=== PATIENT | male | born 1975 | race Caucasian/White ===

== ENCOUNTER 2017-04-25 09:21 | Emergency (ER) | payer BC ==
[~2017-04-25] VITALS: Ht 180.3 cm; Wt 84.6 kg
[~2017-04-25 09:21] MED LIST: AMLO-110 PO; CIPR-255 PO; LISI20TA3 PO; ONDA4TAB7 SL
[2017-04-25 09:26] VITALS: Ht 180.3 cm; Wt 84.6 kg
[2017-04-25] MEDS ORDERED: MoRPHine SULFATE 10 MG/ML CARP/VIAL IV STA ×2 (09:42→10:59)
[2017-04-25] MEDS ORDERED: SODIUM CHLORIDE 0.9% 1000ML 1,000 ML IV STA ×2 (09:42)
[2017-04-25] MEDS ORDERED: ONDANSETRON INJ 2 MG/ML 2 ML VIAL IV STA ×2 (09:42→10:59)
[2017-04-25 09:56] LABS: BASO % 0.9 %; BASO ABS # 0.07 K/uL (0-0.2); COMPLETE YES; EOS % 14.4 %; HEMATOCRIT 47.1 % (42-52); IG% 0.1 %; LYMPH % 28.7 %; LYMPH ABS # 2.23 K/uL (1.2-3.4); MEAN CELL VOLUME 90.6 fL (80-100); MEAN CORPUSCULAR HEMOGLOBIN 30.4 pg (25-34); MEAN CORPUSCULAR HGB CONC 33.5 g/dl (32-36); MEAN PLATELET VOLUME 9.7 fL (7.4-10.4); MONO % 7.5 %; NEUT % 48.4 %; PLATELET COUNT 289 K/uL (130-400); WHITE BLOOD COUNT 7.76 K/uL (4.8-10.8)
[2017-04-25 10:00] VITALS: TEMP 36.6
[2017-04-25 10:06] LABS: CALCIUM 9.4 mg/dl (8.5-10.1)
[2017-04-25 10:07] LABS: BUN/CREATININE RATIO 9.3 (10-20); POTASSIUM 4.1 mmol/L (3.5-5.1)
--- NOTE | 2017-04-25 10:39 | DIAGNOSTIC IMAGING REPORT ---
ABDOMEN 2VIEW W/PA CHEST RTN CLINICAL HISTORY: ABD PAIN X 5 DAYS COMPARISON STUDY: No previous studies for comparison. FINDINGS: The soft tissues, psoas shadows, renal outlines and intestinal gas pattern appear normal. There is no evidence for bowel obstruction. There is no evidence for free intraperitoneal air. No abnormal abdominal calcifications are seen. A frontal view of the chest was performed and is unremarkable. IMPRESSION: Normal study. Electronically signed by: Alfredito Pimentel M.D. 04/25/2017 10:37 AM Dictated Date/Time: 04/25/2017 10:34 AM
[2017-04-25] MEDS ORDERED: OPTIRAY 320 IV PRN (11:15)
--- NOTE | 2017-04-25 11:42 | DIAGNOSTIC IMAGING REPORT ---
CT OF THE ABDOMEN AND PELVIS WITH CONTRAST CLINICAL HISTORY: Severe abdominal pain. COMPARISON STUDY: CT of the abdomen and pelvis December 22, 2014 and abdominal series performed earlier today. TECHNIQUE: Following IV administration of 94 mL of Optiray-320, axial images of the abdomen and pelvis were obtained from the lung bases to the proximal femurs. Images were reviewed in the axial, sagittal, and coronal planes. IV contrast was administered without complication. CT DOSE: 410.32 mGy.cm FINDINGS: Visualized portions of the lower chest demonstrate mild right lower lung opacity which favors atelectasis. No pneumatosis, free air or portal venous gas is present. The liver, spleen, adrenal glands, kidneys and pancreas are normal. There is no hydronephrosis. There is no biliary or pancreatic ductal dilatation. Major vasculature of the abdomen and pelvis is patent. There is no convincing evidence for a bowel obstruction. There are few prominent fluid-filled ileal loops within the right abdomen without transition point. The appendix is normal. No ascites is present. There is no lymphadenopathy. Skeletal structures are unremarkable. IMPRESSION: 1. Normal appendix. 2. Prominent fluid-filled small bowel loops within the right abdomen which are likely within normal limits. No transition point to suggest a bowel obstruction. Electronically signed by: Anmol Hernandez M.D. 04/25/2017 11:41 AM Dictated Date/Time: 04/25/2017 11:30 AM
[2017-04-25] MEDS ORDERED: HYDROmorphone INJ 1 MG/ML SYR IV STA (11:58)
[2017-04-25] MEDS ORDERED: HYDR-5688 PO (12:52)
[2017-04-25] MEDS ORDERED: ONDA4TAB10 SL (12:52)
--- NOTE | 2017-04-25 12:53 | EMERGENCY ROOM VISIT NOTE ---
History First contact with patient: 09:32 Chief Complaint: ABDOMINAL PAIN Stated Complaint: SEVERE ABDOMINAL PAIN Nursing Triage Summary: Pt. reports abdominal pain that started on friday and has gotten progressively worse over the course of the week. States he vomited on friday from the pain, but has not vomited since. History of Present Illness Patient is a 42-year-old white male with past medical history significant for hypertension, diverticulosis, history of diverticulitis and remote history of a kidney stone who presents to emergency department for evaluation of abdominal pain. He notes generalized abdominal pain that started about 4-5 days ago. Initially the pain was tolerable, and would come and go, today the pain has become more constant and is now unbearable. He presently rates his pain an 8/ 10. He has been nauseous, he attributes this to the pain. He vomited once on Friday at the onset of the pain, 4 days ago, but none since. He denies any dysuria, frequency or urgency. Bowel movements have been normal. Last bowel movement was this morning. He denies melena, hematochezia, hematemesis, constipation or diarrhea. No fever. He has a history of diverticulitis which was treated as an outpatient with oral antibiotics. He has a remote history of a kidney stone. He has never had a colonoscopy. He denies pain similar to this previously. No history of abdominal surgeries. He denies any chest pain, palpitations or shortness of breath. No back or flank pain. Review of Systems Review of systems as per HPI. All other systems reviewed were negative. 10 systems reviewed. Past Medical/Surgical History Medical Problems: (1) Diverticulitis (2) Diverticulosis (3) Hypertension Nos (4) Personal History Of Urinary Calculi Surgical Problems: (1) History of shoulder surgery (2) History of vasectomy Electronic medical records are reviewed and summarized as above/below. See Problem List. Social History Smoking Status: Former Smoker Alcohol Use: occasionally Drug Use: none Marital Status: Housing Status: lives with family Occupation Status: employed Current/Historical Medications Scheduled Amlodipine (Norvasc), 5 MG PO DAILY Lisinopril (Prinivil), 20 MG PO DAILY Scheduled PRN Hydrocodone/Acetaminophen 5MG/325MG ([place] 5MG/325MG), 1-2 TABLETS PO Q4H PRN for Pain Ondasetron Odt (Zofran Odt), 4 MG SL Q4 PRN for Nausea or Vomiting Allergies Coded Allergies: No Known Allergies (Unverified , 04/14/14) Physical Exam Vital Signs Date Time Temp Pulse Resp B/P (MAP) Pulse Ox O2 Delivery O2 Flow Rate FiO2 04/25/17 13:41 89 16 123/65 96 04/25/17 12:09 04/25/17 11:46 87 18 121/78 98 Room Air 04/25/17 10:39 74 20 131/60 98 Room Air 04/25/17 10:00 36.6 77 16 120/69 98 Room Air 04/25/17 09:26 36.3 72 20 116/67 98 Room Air Physical Exam CONSTITUTIONAL: Patient is an uncomfortable-appearing 42-year-old white male who is awake and alert and in mild distress due to his abdominal pain. EYES: Pupils equal, round, reactive to light and accommodation. EOMs intact without nystagmus. Sclera are anicteric. ENT: Tympanic membranes intact, with normal landmarks. External canals are clear. Oral and nasopharynx are clear. Mucous membranes are moist, no lesions , tongue and gums appear normal. CARDIOVASCULAR: Regular rate and rhythm, with normal S1 and S2, no murmur or gallop or rub is heard. No carotid bruits auscultated. No JVD. Peripheral pulses easy to palpable. RESPIRATORY: Breath sounds equal and clear to auscultation without wheezes, rales, or rhonchi heard. Full and equal chest expansion without accessory muscle use or retractions. GI: Bowel sounds are present. Abdomen is soft, slightly distended, diffusely tender throughout. There is no localized pain to palpation. No organomegaly. No pulsatile masses. No guarding or rebound. MUSCULOSKELETAL: Full range of motion of extremities x 4 with good strength. No cyanosis, edema, joint tenderness or swelling. No deformity. INTEGUMENTARY: No lesions or rash, normal skin turgor. NEUROLOGICAL: Alert, oriented, and cooperative. Cranial nerves, sensation and strength grossly intact. Pupils round, equal, and react to light, EOMs are full. LYMPH: No lymphadenopathy. Medical Decision & Procedures ER Provider Diagnostic Interpretation: ABDOMEN 2VIEW W/PA CHEST RTN CLINICAL HISTORY: ABD PAIN X 5 DAYS COMPARISON STUDY: No previous studies for comparison. FINDINGS: The soft tissues, psoas shadows, renal outlines and intestinal gas pattern appear normal. There is no evidence for bowel obstruction. There is no evidence for free intraperitoneal air. No abnormal abdominal calcifications are seen. A frontal view of the chest was performed and is unremarkable. IMPRESSION: Normal study. CT OF THE ABDOMEN AND PELVIS WITH CONTRAST CLINICAL HISTORY: Severe abdominal pain. COMPARISON STUDY: CT of the abdomen and pelvis December 22, 2014 and abdominal series performed earlier today. TECHNIQUE: Following IV administration of 94 mL of Optiray-320, axial images of the abdomen and pelvis were obtained from the lung bases to the proximal femurs. Images were reviewed in the axial, sagittal, and coronal planes. IV contrast was administered without complication. CT DOSE: 410.32 mGy.cm FINDINGS: Visualized portions of the lower chest demonstrate mild right lower lung opacity which favors atelectasis. No pneumatosis, free air or portal venous gas is present. The liver, spleen, adrenal glands, kidneys and pancreas are normal. There is no hydronephrosis. There is no biliary or pancreatic ductal dilatation. Major vasculature of the abdomen and pelvis is patent. There is no convincing evidence for a bowel obstruction. There are few prominent fluid-filled ileal loops within the right abdomen without transition point. The appendix is normal. No ascites is present. There is no lymphadenopathy. Skeletal structures are unremarkable. IMPRESSION: 1. Normal appendix. 2. Prominent fluid-filled small bowel loops within the right abdomen which are likely within normal limits. No transition point to suggest a bowel obstruction. Laboratory Results 04/25/17 09:30 Red Blood Count 5.20, Mean Corpuscular Volume 90.6, Mean Corpuscular Hemoglobin 30.4, Mean Corpuscular Hemoglobin Concent 33.5, Mean Platelet Volume 9.7, Neutrophils (%) (Auto) 48.4, Lymphocytes (%) (Auto) 28.7, Monocytes (%) (Auto) 7.5, Eosinophils (%) (Auto) 14.4, Basophils (%) (Auto) 0.9, Neutrophils # (Auto ) 3.75, Lymphocytes # (Auto) 2.23, Monocytes # (Auto) 0.58, Eosinophils # (Auto ) 1.12, Basophils # (Auto) 0.07 04/25/17 09:30 Test 04/25/17 09:30 White Blood Count 7.76 K/uL (4.8-10.8) Red Blood Count 5.20 M/uL (4.7-6.1) Hemoglobin 15.8 g/dL (14.0-18.0) Hematocrit 47.1 % (42-52) Mean Corpuscular Volume 90.6 fL (80-100) Mean Corpuscular Hemoglobin 30.4 pg (25-34) Mean Corpuscular Hemoglobin Concent 33.5 g/dl (32-36) Platelet Count 289 K/uL (130-400) Mean Platelet Volume 9.7 fL (7.4-10.4) Neutrophils (%) (Auto) 48.4 % Lymphocytes (%) (Auto) 28.7 % Monocytes (%) (Auto) 7.5 % Eosinophils (%) (Auto) 14.4 % Basophils (%) (Auto) 0.9 % Neutrophils # (Auto) 3.75 K/uL (1.4-6.5) Lymphocytes # (Auto) 2.23 K/uL (1.2-3.4) Monocytes # (Auto) 0.58 K/uL (0.11-0.59) Eosinophils # (Auto) 1.12 K/uL (0-0.5) Basophils # (Auto) 0.07 K/uL (0-0.2) RDW Standard Deviation 39.0 fL (36.4-46.3) RDW Coefficient of Variation 11.7 % (11.5-14.5) Immature Granulocyte % (Auto) 0.1 % Immature Granulocyte # (Auto) 0.01 K/uL (0.00-0.02) Anion Gap 9.0 mmol/L (3-11) Est Creatinine Clear Calc Drug Dose 101.4 ml/min Estimated GFR () 106.4 Estimated GFR (Non- 91.8 BUN/Creatinine Ratio 9.3 (10-20) Calcium Level 9.4 mg/dl (8.5-10.1) Total Bilirubin 0.5 mg/dl (0.2-1) Aspartate Amino Transf (AST/SGOT) 60 U/L (15-37) Alanine Aminotransferase (ALT/SGPT) 47 U/L (12-78) Alkaline Phosphatase 71 U/L (45-117) Total Protein 7.8 gm/dl (6.4-8.2) Albumin 3.9 gm/dl (3.4-5.0) Globulin 3.9 gm/dl (2.5-4.0) Albumin/Globulin Ratio 1.0 (0.9-2) Lipase 128 U/L (73-393) Medications Administered Medications (Trade) Dose Ordered Sig/Clover Route Start Time Stop Time Status Last Admin Dose Admin Sodium Chloride 1,000 ml @ 999 mls/hr Q1H1M STAT IV 04/25/17 09:42 04/25/17 10:42 DC 04/25/17 09:53 999 MLS/HR Sodium Chloride 1,000 ml @ 250 mls/hr Q4H STAT IV 04/25/17 09:42 04/25/17 13:41 DC 04/25/17 10:56 250 MLS/HR Ondansetron HCl (Zofran Inj) 4 mg NOW STAT IV 04/25/17 09:42 04/25/17 09:44 DC 04/25/17 09:52 4 MG Morphine Sulfate (MoRPHine SULFATE INJ) 6 mg NOW STAT IV 04/25/17 09:42 04/25/17 09:44 DC 04/25/17 09:52 6 MG Morphine Sulfate (MoRPHine SULFATE INJ) 8 mg NOW STAT IV 04/25/17 10:59 04/25/17 11:00 DC 04/25/17 11:40 8 MG Ondansetron HCl (Zofran Inj) 4 mg NOW STAT IV 04/25/17 10:59 04/25/17 11:00 DC 04/25/17 11:39 4 MG ED Course The patient was seen and evaluated as above. Old records are reviewed. IV lock was initiated. Laboratory studies were collected patient was hydrated with normal saline solution. He was initially medicated with morphine 6 mg and Zofran 4 mg IV. CBC with differential, CMP, lipase, urine dip were performed. Acute abdominal series was obtained. Laboratory studies noted a normal white count and H&H. No left shift or bandemia. Electrolytes, renal function and liver functions and lipase are within normal limits. Urine dip was cleaned. Acute abdominal series was unremarkable, no evidence for bowel obstruction, or free air. Patient continued to complain of pain after he returned from x-ray and was given additional morphine 8 mg and Zofran 4 mg IV. Given the persistent pain and his history of diverticulitis, CT scan of the abdomen and pelvis with IV contrast was ordered. Findings are as noted above. There were some dilated loops of small bowel in the right abdomen, no evidence for obstruction. The patient was reassessed and had rated his pain a 2/10, but reported that after he got up to the bathroom, the pain was beginning to return. He had been ordered Dilaudid IV, but this was not administered. All laboratory and diagnostic imaging studies were reviewed with the patient and his significant other. Differential diagnoses entertained included GERD, gastritis, esophagitis , peptic ulcer disease, pancreatitis, acute cholecystitis, biliary colic, bowel obstruction, perforation, diverticulitis, abscess, renal colic, among others. Patient is encouraged to follow a clear liquid diet. He was advised to follow- up closely with his primary care provider next week for further care and evaluation, and to return to the emergency department for worsening symptoms. The patient rated his pain a 0/10 at discharge. Medical Decision See ED course. Impression Primary Impression: Abdominal pain Departure Information Prescriptions Hydrocodone/Acetaminophen 5MG/325MG ([place] 5MG/325MG) Tab 1-2 TABLETS PO Q4H Y for Pain, #15 TAB For Initial Treatment Prov: Leslee Estrada PA 04/25/17 Ondasetron Odt (ZOFRAN ODT) 4 Mg Tab 4 MG SL Q4 Y for Nausea or Vomiting, #20 TAB Prov: Leslee Estrada PA 04/25/17 Referrals Adryan Martinez DO (PCP) Patient Instructions [facility] Additional Instructions DO NOT drive, drink alcohol, operate machinery, or perform dangerous activities today. You were given medications in the ER that can affect your ability to safely function or operate a vehicle. Hydrocodone/Acetaminophen ([place]) 5/325 mg: Take 1-2 pills every four hours for breakthrough pain. Avoid alcohol, operating machinery or dangerous equipment, working on ladders or roofs, DRIVING, or situations where being under the influence may be dangerous. It is recommended to use an [id number] stool softener such as Colace, 100mg twice daily while taking this medication to avoid constipation. Ibuprofen(Motrin, Advil) may be used for fever or pain. Use 600mg every six hours as needed. Take with food. Avoid using more than 2400mg in a 24 hour period. Do not use 2400mg per day for more than three consecutive days without physician direction. Prolonged inappropriate use can lead to stomach upset or ulcers. This is available over the counter and typically comes in 200mg tablets. (AND/OR) Acetaminophen(Tylenol) may be used for fever or pain. Use 1000mg every eight hours as needed. Avoid using more than 3000mg in a 24 hour period. This is available over the counter. Zofran(odansetron) tablets 4mg: Take one and allow it to dissolve in your mouth every four hours as needed for nausea or vomiting. May try Prilosec 20 mg daily. Read all the package inserts or medication information paperwork provided. If you have any questions or concerns call your primary provider, pharmacist or the ER for assistance. Rest and drink plenty of fluids as tolerated. Slow sips of water or sports drinks are recommended instead of large amounts all at once. Continue current medications. Clear liquid diet (jello, soup broth, etc.) for 1-2 days, and then advance as tolerated. You should avoid full, heavy meals for about 24 hrs from the time your symptoms resolved. Return to the ER immediately for worsening or persistent abdominal pain, vomiting, fevers, chest pains, difficulty breathing, black or bloody stools, worsening of your condition, or as needed. Follow up with your primary physician in 1-2 days for a recheck of your current condition. Problem Qualifiers Primary Impression: Abdominal pain Abdominal location: generalized Qualified Codes: R10.84 - Generalized abdominal pain
[2017-04-25 13:41] VITALS: BP 123/65; PULSE 89; O2SAT 96
[2017-05-03] MEDS ORDERED: PRED10TA PO (12:11)
== END 2017-04-25 13:42 | disposition home or self-care (01) ==
LOC: C.EDB 09:22
DX: R10.84 Generalized abdominal pain (principal); I10 Essential (primary) hypertension; K57.90 Diverticulosis of intestine, part unspecified, without perforation or abscess without bleeding; Z87.442 Personal history of urinary calculi; Z87.891 Personal history of nicotine dependence; Z98.52 Vasectomy status

== ENCOUNTER 2017-04-27 20:18 | Emergency (ER) | payer BC ==
[~2017-04-27] VITALS: Ht 180.3 cm; Wt 75.7 kg
[~2017-04-27 20:18] MED LIST changes: +HYDR-5688 PO; +ONDA4TAB10 SL
[2017-04-27 20:26] VITALS: TEMP 36.9; Ht 180.3 cm; Wt 75.7 kg
[2017-04-27] MEDS ORDERED: SODIUM CHLORIDE 0.9% 1000ML 1,000 ML IV STA ×2 (21:30)
[2017-04-27] MEDS ORDERED: DICYCLOMINE HCL 10 MG/ML 2 ML AMP IM ONE (21:30)
[2017-04-27] MEDS ORDERED: RANITIDINE HCL 50 MG/100 ML D5W IV STA (21:30)
[2017-04-27 21:52] LABS: BASO % 0.6 %; BASO ABS # 0.06 K/uL (0-0.2); COMPLETE YES; EOS % 14.7 %; HEMATOCRIT 41.4 % (42-52); IG% 0.2 %; LYMPH % 35.7 %; LYMPH ABS # 3.35 K/uL (1.2-3.4); MEAN CELL VOLUME 89.8 fL (80-100); MEAN CORPUSCULAR HEMOGLOBIN 31.5 pg (25-34); MEAN PLATELET VOLUME 9.4 fL (7.4-10.4); MONO % 5.5 %; NEUT % 43.3 %; PLATELET COUNT 259 K/uL (130-400); RED BLOOD COUNT 4.61 M/uL (4.7-6.1); WHITE BLOOD COUNT 9.39 K/uL (4.8-10.8)
--- NOTE | 2017-04-27 22:04 | DIAGNOSTIC IMAGING REPORT ---
CHEST ONE VIEW PORTABLE CLINICAL HISTORY: Atypical chest pain COMPARISON STUDY: 04/25/2017 FINDINGS: The cardiac and mediastinal contours are normal. There is no evidence of focal pulmonary consolidation. There is no evidence of failure. No pleural effusions are visualized.[ IMPRESSION: No active disease in the chest. Electronically signed by: Oswald Iqbal M.D. 04/27/2017 10:03 PM Dictated Date/Time: 04/27/2017 10:03 PM
[2017-04-27 22:08] LABS: ALT/SGPT 33 U/L (12-78); BLOOD UREA NITROGEN 8 mg/dl (7-18); BUN/CREATININE RATIO 8.1 (10-20); CARBON DIOXIDE 26 mmol/L (21-32); CHLORIDE 106 mmol/L (98-107); GLUCOSE 114 mg/dl (70-99); MAGNESIUM 2.1 mg/dl (1.8-2.4); POTASSIUM 3.6 mmol/L (3.5-5.1); SODIUM 142 mmol/L (136-145)
[2017-04-27 22:14] LABS: ALKALINE PHOSPHATASE 60 U/L (45-117); AST/SGOT 29 U/L (15-37); CKMB/CK RATIO 0.4 (0-3.0)
[2017-04-27 22:38] LABS: CALCIUM 8.5 mg/dl (8.5-10.1)
[2017-04-27] MEDS ORDERED: KETOROLAC TROMETHAMINE 30 MG/ML VIAL IV STA (23:45)
[2017-04-27] MEDS ORDERED: METOCLOPRAMIDE HCL INJ 5 MG/ML 2 ML VIAL IV STA (23:45)
[2017-04-27] MEDS ORDERED: DiphenhydrAMINE HCL 50 MG/ML VIAL IV STA (23:45)
[2017-04-28] MEDS ORDERED: OPTIRAY 320 IV PRN (00:15)
[2017-04-28] MEDS ORDERED: BENTYL HOME PACK 10 MG VIAL PO ONE (01:30)
[2017-04-28] MEDS ORDERED: ONDANSETRON HOME PACK 4MG OD TAB PO ONE (01:30)
[2017-04-28] MEDS ORDERED: ONDA4TAB46 PO (01:34)
[2017-04-28] MEDS ORDERED: DICY10CA55 PO (01:34)
[2017-04-28 01:47] VITALS: BP 102/62; PULSE 56; O2SAT 98
--- NOTE | 2017-04-28 03:39 | EMERGENCY ROOM VISIT NOTE ---
History First contact with patient: 21:23 Chief Complaint: ABDOMINAL PAIN Stated Complaint: ABD PAIN W/CRAMPING Nursing Triage Summary: pt reports abdominal pain after eating located more on R side radiates into back at this time History of Present Illness The patient is a 42 year old male who presents to the Emergency Room with complaints of right-sided abdominal pain with generalized abdominal pain for the past few days with loose stool. Patient was seen here 2 days ago and had a CT scan that was negative. Pain has gotten progressively worse and this is what prompts him to come back. Pain currently 5 out of 10 throughout the abdomen worse in the right side. He's had some loose stool. No recent antibiotics. No well water. Patient denies chest pain, dyspnea, fever, chills , nausea, vomiting, urinary symptoms. No colonoscopy in the past. No history of inflammatory bowel or irritable bowel Review of Systems See HPI for pertinent positives & negatives. A total of 10 systems reviewed and were otherwise negative. Past Medical/Surgical History Medical Problems: (1) Diverticulitis (2) Diverticulosis (3) Hypertension Nos (4) Personal History Of Urinary Calculi Surgical Problems: (1) History of shoulder surgery (2) History of vasectomy Social History Smoking Status: Never Smoker Alcohol Use: occasionally Drug Use: none Marital Status: Housing Status: lives with family Occupation Status: employed Current/Historical Medications Scheduled Amlodipine (Norvasc), 5 MG PO DAILY Dicyclomine Hcl (Bentyl), 10 MG PO Q8 Lisinopril (Prinivil), 20 MG PO DAILY Ondansetron Hcl (Zofran), 4 MG PO Q6 Scheduled PRN Hydrocodone/Acetaminophen 5MG/325MG ([place] 5MG/325MG), 1-2 TABLETS PO Q4H PRN for Pain Ondasetron Odt (Zofran Odt), 4 MG SL Q4 PRN for Nausea or Vomiting Allergies Coded Allergies: No Known Allergies (Unverified , 04/14/14) Physical Exam Vital Signs Date Time Temp Pulse Resp B/P (MAP) Pulse Ox O2 Delivery O2 Flow Rate FiO2 04/28/17 01:47 56 18 102/62 98 04/27/17 23:12 56 18 114/61 98 Room Air 04/27/17 22:02 64 18 112/69 99 Room Air 04/27/17 20:26 36.9 75 18 129/76 95 Room Air Pain Rating (0-10): 3.0 Physical Exam VITALS: Vitals are noted on the nurse's note and reviewed by myself. Vital signs stable. GENERAL: White male anxious-appearing, in no acute distress, nondiaphoretic, well-developed well-nourished. SKIN: The skin was without rashes, erythema, edema, or bruising. There is no tenting of the skin. Capillary reflex less than 2 seconds. HEAD: Normocephalic atraumatic. EARS: External auditory canals clear, tympanic membranes pearly choi without erythema or effusion bilaterally. EYES: Pupils equal round and reactive to light and accommodation. Conjunctivae without injection, sclerae without icterus. Extraocular movements intact. NOSE: Patent, turbinates without inflammation or discharge. MOUTH: Mucous membranes moist. Pharynx without erythema or exudate. Uvula midline. Airway patent. Tongue does not deviate. NECK: Supple without nuchal rigidity. No lymphadenopathy. No thyromegaly. Cervical spine is nontender. No JVD. HEART: Regular rate and rhythm without murmurs gallops or rubs. LUNGS: Clear to auscultation bilaterally without wheezes, rales or rhonchi. No dullness to percussion. No retractions or accessory muscle use. ABDOMEN: Positive bowel sounds x 4. Normal tympanic percussion. Soft, tender to palpation right side of abdomen no CVA tenderness, without masses or organomegaly. Leigh sign negative. No guarding or rebound tenderness. MUSCULOSKELETAL: No muscle atrophy, erythema, or edema noted. NEURO: Patient was alert and oriented to person place and time. Normal sensation to light and sharp touch. No focal neurological deficits. Medical Decision & Procedures Laboratory Results 04/27/17 21:41 Red Blood Count 4.61, Mean Corpuscular Volume 89.8, Mean Corpuscular Hemoglobin 31.5, Mean Corpuscular Hemoglobin Concent 35.0, Mean Platelet Volume 9.4, Neutrophils (%) (Auto) 43.3, Lymphocytes (%) (Auto) 35.7, Monocytes (%) (Auto) 5.5, Eosinophils (%) (Auto) 14.7, Basophils (%) (Auto) 0.6, Neutrophils # (Auto ) 4.06, Lymphocytes # (Auto) 3.35, Monocytes # (Auto) 0.52, Eosinophils # (Auto ) 1.38, Basophils # (Auto) 0.06 04/27/17 21:41 Test 04/27/17 21:41 White Blood Count 9.39 K/uL (4.8-10.8) Red Blood Count 4.61 M/uL (4.7-6.1) Hemoglobin 14.5 g/dL (14.0-18.0) Hematocrit 41.4 % (42-52) Mean Corpuscular Volume 89.8 fL (80-100) Mean Corpuscular Hemoglobin 31.5 pg (25-34) Mean Corpuscular Hemoglobin Concent 35.0 g/dl (32-36) Platelet Count 259 K/uL (130-400) Mean Platelet Volume 9.4 fL (7.4-10.4) Neutrophils (%) (Auto) 43.3 % Lymphocytes (%) (Auto) 35.7 % Monocytes (%) (Auto) 5.5 % Eosinophils (%) (Auto) 14.7 % Basophils (%) (Auto) 0.6 % Neutrophils # (Auto) 4.06 K/uL (1.4-6.5) Lymphocytes # (Auto) 3.35 K/uL (1.2-3.4) Monocytes # (Auto) 0.52 K/uL (0.11-0.59) Eosinophils # (Auto) 1.38 K/uL (0-0.5) Basophils # (Auto) 0.06 K/uL (0-0.2) RDW Standard Deviation 37.6 fL (36.4-46.3) RDW Coefficient of Variation 11.5 % (11.5-14.5) Immature Granulocyte % (Auto) 0.2 % Immature Granulocyte # (Auto) 0.02 K/uL (0.00-0.02) Anion Gap 10.0 mmol/L (3-11) Est Creatinine Clear Calc Drug Dose 101.4 ml/min Estimated GFR () 106.4 Estimated GFR (Non- 91.8 BUN/Creatinine Ratio 8.1 (10-20) Calcium Level 8.5 mg/dl (8.5-10.1) Magnesium Level 2.1 mg/dl (1.8-2.4) Total Bilirubin 0.3 mg/dl (0.2-1) Direct Bilirubin < 0.1 mg/dl (0-0.2) Aspartate Amino Transf (AST/SGOT) 29 U/L (15-37) Alanine Aminotransferase (ALT/SGPT) 33 U/L (12-78) Alkaline Phosphatase 60 U/L (45-117) Total Creatine Kinase 303 U/L (39-308) Creatine Kinase MB 1.2 ng/ml (0.5-3.6) Creatine Kinase MB Ratio 0.4 (0-3.0) Troponin I < 0.015 ng/ml (0-0.045) Total Protein 6.8 gm/dl (6.4-8.2) Albumin 3.3 gm/dl (3.4-5.0) Lipase 133 U/L (73-393) Medications Administered Medications (Trade) Dose Ordered Sig/Clover Route Start Time Stop Time Status Last Admin Dose Admin Dicyclomine HCl (Bentyl Inj) 20 mg NOW ONCE IM 04/27/17 21:30 04/27/17 21:33 DC 04/27/17 22:03 20 MG Ranitidine HCl (zANTac IV) 50 mg NOW STAT IV 04/27/17 21:30 04/27/17 21:33 DC 04/27/17 22:03 50 MG Sodium Chloride 1,000 ml @ 999 mls/hr Q1H1M STAT IV 04/27/17 21:30 04/27/17 22:30 DC 04/27/17 21:30 999 MLS/HR Sodium Chloride 1,000 ml @ 125 mls/hr Q8H STAT IV 04/27/17 21:30 04/28/17 02:43 DC 04/27/17 21:30 125 MLS/HR Ketorolac Tromethamine (Toradol Inj) 30 mg NOW STAT IV 04/27/17 23:45 04/27/17 23:46 DC 04/27/17 23:55 30 MG Metoclopramide HCl (Reglan Inj) 10 mg NOW STAT IV 04/27/17 23:45 04/27/17 23:46 DC 04/27/17 23:54 10 MG Diphenhydramine HCl (Benadryl Inj) 25 mg NOW STAT IV 04/27/17 23:45 04/27/17 23:47 DC 04/27/17 23:54 25 MG Ondansetron HCl (ZOFRAN ODT 4MG Home Pack) 1 homepack UD ONCE PO 04/28/17 01:30 6 01:31 DC 04/28/17 01:30 1 HOMEPACK Dicyclomine HCl (Dicyclomine HCl 10MG Home Pack) 1 ea UD ONCE PO 04/28/17 01:30 6 01:31 DC 04/28/17 01:30 1 EA ED Course Prior records/ancillary studies reviewed. Triage Nursing notes reviewed. The patient's history was concerning for abdominal pain. Differential diagnosis: Etiologies such as appendicitis, diverticulitis, PUD, biliary pathology, UTI, pancreatitis, obstruction, mesenteric ischemia, aortic pathology, infections, inflammatory bowel disease, renal colic, as well as others were entertained. Physical examination findings: As above. ER treatment provided: IV fluids, Zantac, Bentyl, Toradol, Reglan, Benadryl On reassessment the patient felt better. Diagnostics interpreted by me: ECG: Normal sinus, normal intervals, no acute ST-T wave changes. Impression normal sinus rhythm interpreted by myself The labs revealed stable H&H. No worrisome electrolyte abnormality Imaging studies: Ultrasound negative for acute cholecystitis Chest x-ray with no acute consolidation, pneumothorax or free air per my interpretation CT concerning for enteritis per radiology Exam and history seem consistent with enteritis. Patient's been having some diarrhea. He was unable to give stool specimen. Patient's pain persisted so further imaging was ordered. I did inform the patient that he just had a CT scan and would be a better idea to see GI for possible colonoscopy. Pt was still extremely uncomfortable with pain and requested further imaging. This was ordered. He was still informed to follow-up with GI for his ongoing abdominal issues and to do bland diet. He was advised to return to the ER me for abdominal pain, fevers, vomiting, worsening signs or symptoms or as needed. Patient felt comfortable with treatment plan and was pleased and ambulated without difficulties. By the evaluation outlined above emergent etiologies such as appendicitis, diverticulitis, PUD, biliary pathology, UTI, pancreatitis, obstruction, mesenteric ischemia, aortic pathology, renal colic, as well as others were deemed relatively unlikely. The pt informed about the findings as listed above. All questions were answered and pleased with the treatment. Return instructions were outlined and the patient was discharged in stable condition. Outpatient prescription management: Bentyl, Zofran Referral: The patient was referred back to their primary care physician and GI for follow- up in 2 to 3 days for a recheck of the current condition. Case reviewed with my attending. Medical Decision As above Impression Primary Impression: Enteritis Departure Information Dispostion Home / Self-Care Condition GOOD Prescriptions Ondansetron Hcl (ZOFRAN) 4 Mg Tab 4 MG PO Q6, #10 TAB Prov: Norma Maldonado .DONN 04/28/17 Dicyclomine Hcl (BENTYL) 10 Mg Cap 10 MG PO Q8, #20 CAP Prov: Norma Maldonado .DONN 04/28/17 Referrals Adryan Martinez, (PCP) Gwen Ivy, Forms Call Back Authorization, HOME CARE DOCUMENTATION FORM, Work Instructions, Return To Work: 1 day IMPORTANT VISIT INFORMATION Patient Instructions My [facility], ED Gastroenteritis Non Infec Additional Instructions DO NOT drive, drink alcohol, operate machinery, or perform dangerous activities today. You were given medications in the ER that can affect your ability to safely function or operate a vehicle. Bentyl tablets 10mg: Take one every 8 hours as needed for abdominal cramping. Zofran(odansetron) tablets 4mg: Take one and allow it to dissolve in your mouth every four to six hours as needed for nausea or vomiting. Ibuprofen(Motrin, Advil) may be used for fever or pain. Use 600mg every six hours as needed. Take with food. Avoid using more than 2400mg in a 24 hour period. Do not use 2400mg per day for more than three consecutive days without physician direction. Prolonged inappropriate use can lead to stomach upset or ulcers. (AND/OR) Acetaminophen(Tylenol) may be used for fever or pain. Use 1000mg every six hours as needed. Avoid using more than 3000mg in a 24 hour period. Rest and drink plenty of fluids as tolerated. Slow sips of water or sports drinks are recommended instead of large amounts all at once. Continue current medications. Once your stomach is settled start with a clear liquid diet (jello, soup broth, etc.) and then advance as tolerated. You should avoid full, heavy meals for about 24 hrs from the time your symptoms resolved. Return to the ER for persistent vomiting, fevers, abdominal pain, chest pains, difficulty breathing, black or bloody stools, worsening of your condition, or as needed. Follow up with your primary physician in 2-3 days for a recheck of your current condition. Follow up with GI for your ongoing abdominal pain. Work Instructions Return To Work: 1 day
--- NOTE | 2017-04-28 06:20 | DIAGNOSTIC IMAGING REPORT ---
Right upper quadrant ultrasound GALLBLADDER-ABD LIMITED CLINICAL HISTORY: Pain nausea TECHNIQUE: Ultrasound COMPARISON STUDY: None FINDINGS: Normal gallbladder. Normal blurred ductal system. Common bile duct 4 mm. Liver pancreas and right kidney within normal limits. IMPRESSION: Normal study Electronically signed by: Alfredito Pimentel M.D. 04/28/2017 6:19 AM Dictated Date/Time: 04/28/2017 6:17 AM
--- NOTE | 2017-04-28 07:39 | DIAGNOSTIC IMAGING REPORT ---
ABDOMEN AND PELVIS CT WITH IV CONTRAST CT DOSE: 468.94 mGy.cm HISTORY: Right lower abd pain, increased TECHNIQUE: Multiaxial CT images of the abdomen and pelvis were performed following the use of intravenous contrast. COMPARISON STUDY: Abdomen and pelvis CT 04/25/2017. FINDINGS: The lung bases are clear. No pneumoperitoneum. No pneumatosis. The liver, spleen, pancreas, kidneys, adrenal glands, and gallbladder are unremarkable. Tiny fat-containing umbilical hernia. Normal bladder. No bowel wall thickening or obstruction. Normal appendix. Fluid-filled loops of large or small bowel. IMPRESSION: 1. Fluid-filled loops of large and small bowel. This may represent a low-grade gastroenteritis. 2. No evidence for bowel obstruction. 3. Normal appendix. Electronically signed by: Jl Chapa M.D. 04/28/2017 7:38 AM Dictated Date/Time: 04/28/2017 7:34 AM
[2017-05-03] MEDS ORDERED: PRED10TA PO (12:11)
== END 2017-04-28 01:48 | disposition home or self-care (01) ==
LOC: C.EDB 20:19
DX: K52.9 Noninfective gastroenteritis and colitis, unspecified (principal); K57.92 Diverticulitis of intestine, part unspecified, without perforation or abscess without bleeding; K57.90 Diverticulosis of intestine, part unspecified, without perforation or abscess without bleeding; I10 Essential (primary) hypertension; Z87.442 Personal history of urinary calculi; Z79.899 Other long term (current) drug therapy

== ENCOUNTER 2017-05-01 12:00 | Inpatient (IN) | payer BC ==
[~2017-05-01] VITALS: Ht 180.3 cm; Wt 86.0 kg
[~2017-05-01 12:00] MED LIST changes: -CIPR-255 PO; +DICY10CA55 PO; +ONDA4TAB46 PO; -ONDA4TAB7 SL
[2017-05-01] MEDS ORDERED: ONDANSETRON INJ 2 MG/ML 2 ML VIAL IV STA (12:38)
[2017-05-01] MEDS ORDERED: MoRPHine SULFATE 10 MG/ML CARP/VIAL IV STA (12:38)
[2017-05-01] MEDS ORDERED: SODIUM CHLORIDE 0.9% 1000ML 1,000 ML IV STA (12:38)
[2017-05-01 12:39] LABS: BASO % 0.2 %; BASO ABS # 0.03 K/uL (0-0.2); COMPLETE YES; EOS % 3.9 %; HEMATOCRIT 49.6 % (42-52); IG% 0.1 %; LYMPH % 12.1 %; LYMPH ABS # 1.63 K/uL (1.2-3.4); MEAN CORPUSCULAR HEMOGLOBIN 29.8 pg (25-34); MEAN CORPUSCULAR HGB CONC 33.1 g/dl (32-36); MEAN PLATELET VOLUME 9.6 fL (7.4-10.4); MONO % 4.4 %; NEUT % 79.3 %; PLATELET COUNT 308 K/uL (130-400); RED BLOOD COUNT 5.51 M/uL (4.7-6.1); WHITE BLOOD COUNT 13.49 K/uL (4.8-10.8)
[2017-05-01 12:56] LABS: CALCIUM 9.2 mg/dl (8.5-10.1)
[2017-05-01] MEDS ORDERED: PRED10TA PO (13:00)
[2017-05-01 13:01] LABS: ALT/SGPT 35 U/L (12-78); BLOOD UREA NITROGEN 9 mg/dl (7-18); BUN/CREATININE RATIO 8.2 (10-20); CARBON DIOXIDE 30 mmol/L (21-32); CHLORIDE 101 mmol/L (98-107); GLUCOSE 93 mg/dl (70-99); POTASSIUM 4.2 mmol/L (3.5-5.1); SODIUM 139 mmol/L (136-145)
[2017-05-01 13:04] LABS: ALKALINE PHOSPHATASE 75 U/L (45-117); AST/SGOT 18 U/L (15-37)
--- NOTE | 2017-05-01 13:25 | DIAGNOSTIC IMAGING REPORT ---
ABDOMEN 2VIEW W/PA CHEST RTN (5 views) CLINICAL HISTORY: Generalized abdominal pain COMPARISON STUDY: 04/25/2017 FINDINGS: The erect chest reveals no free air. There is no focal pulmonary consolidation. Erect and supine views the abdomen reveal borderline dilated left mid abdominal small bowel loops measuring up to 31 mm in diameter. There are scattered air-fluid levels on the erect study. The findings could indicate an ileus, or low-grade/early small bowel obstruction. IMPRESSION: Nonspecific bowel gas pattern with borderline dilated left mid abdominal small bowel loops with associated air-fluid levels. The findings could indicate an ileus, or early/partial small bowel obstruction. No free air is visualized Electronically signed by: Oswald Iqbal M.D. 05/01/2017 1:24 PM Dictated Date/Time: 05/01/2017 1:21 PM
[2017-05-01] MEDS ORDERED: SODIUM CHLORIDE 0.9% 500ML 500 ML IV STA (13:53)
[2017-05-01] MEDS ORDERED: HYDROmorphone INJ 1 MG/ML SYR IV STA (13:53)
[2017-05-01] MEDS ORDERED: CIPROFLOXACIN 400MG / 200ML D5W IV STA (14:03)
[2017-05-01] MEDS ORDERED: METRONIDAZOLE 500MG / 100ML NSS IV STA (14:03)
[2017-05-01] MEDS ORDERED: MAGNESIUM HYDROXIDE SUSP 30 ML UDC PO PRN (14:15)
[2017-05-01] MEDS ORDERED: ALUMINUM/MAGNESIUM/SIMETH (MAALOX MAX) 30 ML UDC PO PRN (14:15)
[2017-05-01] MEDS ORDERED: OPTIRAY 320 IV PRN (14:15)
[2017-05-01] MEDS ORDERED: ONDANSETRON INJ 2 MG/ML 2 ML VIAL IV PRN (14:15)
[2017-05-01] MEDS ORDERED: METHYLPREDNISOLONE IV 20 MG in SYRINGE 0 ML IV SCH (14:15)
[2017-05-01] MEDS ORDERED: ACETAMINOPHEN 325 MG TAB PO PRN (14:15)
[2017-05-01] MEDS ORDERED: POLYETHYLENE (MIRALAX) 17 GM PACK PO PRN (14:15)
--- NOTE | 2017-05-01 14:33 | EMERGENCY ROOM VISIT NOTE ---
History Report prepared by Chandler: Kimani Reyes Under the Supervision of: Dr. Tyson Alvarez D.O. First contact with patient: 12:28 Chief Complaint: GI ASSESSMENT Stated Complaint: STOMACH ISSUES History of Present Illness The patient is a 42 year old male who presents to the Emergency Room with complaints of constant stabbing abdominal pain starting 6 days ago. He rates his pain at a 10/10 in severity. The patient states that he has been seen three times for these symptoms this week but denies any significant CT results. The patient states that he took two hydrocodone but denies any use of his steroids. He reports that he saw his GI this morning and was referred to the ED. The patient states that he had a normal bowel movement this morning, but he admits to intermittent diarrhea. The patient states that he used to drink soda every day, but stopped in November and has lost 30 pounds since. The patient denies any history of a cholecystectomy, appendectomy, recent travel, tick bites, and medication allergies. The patient also denies headache, change in vision, fevers , chest pain, shortness of breath, pain with urination, and melena. Source of History: patient Onset: 6 days ago Position: abdomen Symptom Intensity: 10/10 Quality: stabbing Timing: constant Associated Symptoms: + diarrhea Review of Systems See HPI for pertinent positives & negatives. A total of 10 systems reviewed and were otherwise negative. Past Medical & Surgical Medical Problems: (1) Diverticulitis (2) Diverticulosis (3) Hypertension Nos (4) Intermittent small bowel obstruction (5) Personal History Of Urinary Calculi Surgical Problems: (1) History of shoulder surgery (2) History of vasectomy Social History Smoking Status: Never Smoker Alcohol Use: occasionally Drug Use: none Marital Status: Housing Status: lives with family Occupation Status: employed Current/Historical Medications Scheduled Amlodipine (Norvasc), 5 MG PO DAILY Dicyclomine Hcl (Bentyl), 10 MG PO Q8 Lisinopril (Prinivil), 20 MG PO DAILY Prednisone (Prednisone), 20 MG PO DAILY Scheduled PRN Hydrocodone/Acetaminophen 5MG/325MG ([place] 5MG/325MG), 1-2 TABLETS PO Q4H PRN for Pain Ondasetron Odt (Zofran Odt), 4 MG SL Q4 PRN for Nausea or Vomiting Allergies Coded Allergies: No Known Allergies (Unverified , 05/01/17) Physical Exam Vital Signs Date Time Temp Pulse Resp B/P (MAP) Pulse Ox O2 Delivery O2 Flow Rate FiO2 05/01/17 12:05 36.6 85 18 133/69 99 Room Air Physical Exam GENERAL: Sitting up in bed. alert, well appearing, well nourished, mild distress , non-toxic EYE EXAM: normal conjunctiva, PERRL and EOM's grossly intact OROPHARYNX: no exudate, no erythema, lips, buccal mucosa, and tongue normal and mucous membranes are moist NECK: supple, no nuchal rigidity, no adenopathy, non-tender LUNGS: Clear to auscultation. Normal chest wall mechanics HEART: no murmurs, S1 normal and S2 normal ABDOMEN: abdomen firm, Minimal diffusive tenderness, normo-active bowel sounds, no masses, no rebound or guarding. BACK: Back is symmetrical on inspection and there is no deformity, no midline tenderness, no CVA tenderness. SKIN: no rashes and no bruising UPPER EXTREMITIES: upper extremities are grossly normal. LOWER EXTREMITIES: No pitting edema. NEURO EXAM: Normal sensorium, cranial nerves II-XII grossly intact, normal speech, no gross weakness of arms, no gross weakness of legs. Gross sensation intact. Medical Decision & Procedures ER Provider Diagnostic Interpretation: CT scan: Radiology provided the following report CT: The preliminary reading from radiology is the following ABDOMEN 2VIEW W/PA CHEST RTN (5 views) CLINICAL HISTORY: Generalized abdominal pain COMPARISON STUDY: 04/25/2017 FINDINGS: The erect chest reveals no free air. There is no focal pulmonary consolidation. Erect and supine views the abdomen reveal borderline dilated left mid abdominal small bowel loops measuring up to 31 mm in diameter. There are scattered air-fluid levels on the erect study. The findings could indicate an ileus, or low-grade/early small bowel obstruction. IMPRESSION: Nonspecific bowel gas pattern with borderline dilated left mid abdominal small bowel loops with associated air-fluid levels. The findings could indicate an ileus, or early/partial small bowel obstruction. No free air is visualized Electronically signed by: Oswald Iqbal M.D. 05/01/2017 1:24 PM Dictated Date/Time: 05/01/2017 1:21 PM Laboratory Results 05/01/17 12:20 Red Blood Count 5.51, Mean Corpuscular Volume 90.0, Mean Corpuscular Hemoglobin 29.8, Mean Corpuscular Hemoglobin Concent 33.1, Mean Platelet Volume 9.6, Neutrophils (%) (Auto) 79.3, Lymphocytes (%) (Auto) 12.1, Monocytes (%) (Auto) 4.4, Eosinophils (%) (Auto) 3.9, Basophils (%) (Auto) 0.2, Neutrophils # (Auto) 10.70, Lymphocytes # (Auto) 1.63, Monocytes # (Auto) 0.59, Eosinophils # (Auto) 0.53, Basophils # (Auto) 0.03 05/01/17 12:20 Test 05/01/17 12:20 05/01/17 13:25 White Blood Count 13.49 K/uL (4.8-10.8) Red Blood Count 5.51 M/uL (4.7-6.1) Hemoglobin 16.4 g/dL (14.0-18.0) Hematocrit 49.6 % (42-52) Mean Corpuscular Volume 90.0 fL (80-100) Mean Corpuscular Hemoglobin 29.8 pg (25-34) Mean Corpuscular Hemoglobin Concent 33.1 g/dl (32-36) Platelet Count 308 K/uL (130-400) Mean Platelet Volume 9.6 fL (7.4-10.4) Neutrophils (%) (Auto) 79.3 % Lymphocytes (%) (Auto) 12.1 % Monocytes (%) (Auto) 4.4 % Eosinophils (%) (Auto) 3.9 % Basophils (%) (Auto) 0.2 % Neutrophils # (Auto) 10.70 K/uL (1.4-6.5) Lymphocytes # (Auto) 1.63 K/uL (1.2-3.4) Monocytes # (Auto) 0.59 K/uL (0.11-0.59) Eosinophils # (Auto) 0.53 K/uL (0-0.5) Basophils # (Auto) 0.03 K/uL (0-0.2) RDW Standard Deviation 37.5 fL (36.4-46.3) RDW Coefficient of Variation 11.4 % (11.5-14.5) Immature Granulocyte % (Auto) 0.1 % Immature Granulocyte # (Auto) 0.01 K/uL (0.00-0.02) Anion Gap 8.0 mmol/L (3-11) Est Creatinine Clear Calc Drug Dose 92.2 ml/min Estimated GFR () 94.8 Estimated GFR (Non- 81.8 BUN/Creatinine Ratio 8.2 (10-20) Calcium Level 9.2 mg/dl (8.5-10.1) Total Bilirubin 0.4 mg/dl (0.2-1) Direct Bilirubin < 0.1 mg/dl (0-0.2) Aspartate Amino Transf (AST/SGOT) 18 U/L (15-37) Alanine Aminotransferase (ALT/SGPT) 35 U/L (12-78) Alkaline Phosphatase 75 U/L (45-117) Total Protein 7.7 gm/dl (6.4-8.2) Albumin 3.9 gm/dl (3.4-5.0) Lipase 117 U/L (73-393) Lactic Acid Level 1.0 mmol/L (0.4-2.0) Medications Administered Medications (Trade) Dose Ordered Sig/Clover Route Start Time Stop Time Status Last Admin Dose Admin Sodium Chloride 1,000 ml @ 999 mls/hr Q1H1M STAT IV 05/01/17 12:38 05/01/17 13:38 DC 05/01/17 13:05 999 MLS/HR Ondansetron HCl (Zofran Inj) 4 mg NOW STAT IV 05/01/17 12:38 05/01/17 12:40 DC 05/01/17 13:04 4 MG Morphine Sulfate (MoRPHine SULFATE INJ) 6 mg NOW STAT IV 05/01/17 12:38 05/01/17 12:40 DC 05/01/17 13:04 6 MG Sodium Chloride 500 ml @ 999 mls/hr Q31M STAT IV 05/01/17 13:53 05/01/17 14:23 DC 05/01/17 14:38 999 MLS/HR Hydromorphone HCl (Dilaudid Inj) 1 mg NOW STAT IV 05/01/17 13:53 05/01/17 13:55 DC 05/01/17 14:36 1 MG Metronidazole (Flagyl / Nss) 500 mg NOW STAT IV 05/01/17 14:03 05/01/17 14:05 DC 05/01/17 14:37 500 MG Ciprofloxacin/ Dextrose (Cipro / D5W) 400 mg NOW STAT IV 05/01/17 14:03 05/01/17 14:05 DC 05/01/17 14:37 400 MG Ondansetron HCl (Zofran Inj) 4 mg Q6H PRN IV 05/01/17 14:15 05/31/17 14:14 05/01/17 19:07 4 MG Acetaminophen/ Hydrocodone Bitart ([place] 5/325 Tab) 1 tab Q4H PRN PO 05/01/17 14:15 05/15/17 14:14 05/01/17 18:04 1 TAB Hydromorphone HCl (Dilaudid Inj) 1 mg Q2H PRN IV 05/01/17 14:05/15/17 14:14 05/01/17 19:09 1 MG Methylprednisolone Sodium Succinate 20 mg/Syringe 0.32 ml @ 1.5 mls/min TODAY@1415 IV 05/01/17 14:15 05/01/17 18:01 DC 05/01/17 16:51 1.5 MLS/MIN ED Course ED COURSE: Vital signs were reviewed and showed hypertension. The patients medical record was reviewed The above diagnostic studies were performed and reviewed. ED treatments and interventions as stated above. 1231: I discussed the patient's case with , Gastroenterology. He states that due to the patient's low albumin count and dilated small intestine, he believes that he has intermittent obstructions. Dr. Ferreira states that he believes the patient needs to take his steroids and have an MRI Enterography done. 1233: The patient was evaluated in room C07. A complete history and physical examination was performed. 1238: Morphine Sulfate 6 mg IV, Zofran Injection 4 mg IV, Sodium Chloride 1999 nk @ 999 mls/hr IV. 1353: Dilaudid Injection 1 mg IV, Sodium Chloride 500 ml @ 999 mls/hr. 1350: I discussed the patient's case with Dr. Perez, [facility] Hospitalist. He understands the patient's condition and agrees to accept the patient. I reevaluated the patient and he is resting comfortably. I updated the patient. The patient will be further evaluated. 1403: Cipro/ D5W 400 mg IV, Flagyl/ Nss 500 mg IV. Medical Decision Differential diagnoses includes but is not limited to gastritis, peptic ulcer disease, GERD, gallbladder disease, pancreatitis, small bowel obstruction, acute coronary syndrome, pericarditis, ischemic bowel, irritable bowel disease, irritable bowel syndrome, appendicitis, diverticulitis, malignancy, hernia, urinary tract infection, torsion, perforation, trauma, infectious. Patient is a 42-year-old male who presents the ER for persistent worsening abdominal pain. He is referred in by GI. He had 2 previous CAT scans which shows some mildly dilated small bowel but no obstruction. Labs show a leukocytosis of 13,000. BMP along with LFTs, bilirubin, lipase and lactic acid were normal. CT angiogram of the abdomen was performed following x-ray which showed a possible obstruction for mesenteric ischemia which was negative. Patient was evaluated by GI in the ER. He was given steroids. He was given multiple doses of narcotics. He did feel slightly better. He is admitted to internal medicine for MR enterography possible inflammatory bowel disease causing intermittent small bowel obstruction. Consults Time Called: 1350 Consulting Physician: Dr. Perez [facility] Hospitalist Returned Call: 1350 I discussed the patient's case with Dr. Perez, [facility] Hospitalist. He understands the patient's condition and agrees to accept the patient. Impression Primary Impression: Intermittent small bowel obstruction Additional Impression: Abdominal pain Ruled Out: Bowel obstruction Scribe Attestation The scribe's documentation has been prepared under my direction and personally reviewed by me in its entirety. I confirm that the note above accurately reflects all work, treatment, procedures, and medical decision making performed by me. Departure Information Dispostion Being Evaluated By Hospitalist (Dr. Perez, [facility]) Referrals No Doctor, Assigned (PCP) Patient Instructions My [facility] Problem Qualifiers Additional Impression: Abdominal pain Abdominal location: generalized Qualified Codes: R10.84 - Generalized abdominal pain
--- NOTE | 2017-05-01 14:34 | History and Physical ---
History & Physical Date & Time of Service: May 01, 2017 at 14:16 Chief Complaint: Stomach Issues Primary Care Physician: Adryan Martinez DO History of Present Illness Source: patient, family, clinic records, hospital records Patient is a pleasant 42 y/o male, with PMHx of HTN, who presented to the ED because of persistent diffuse abdominal pain x1 week. Patient states this is his third time being seen in the ED. Patient had abdominal CT scans on 04/25 and which were suggestive of obstruction vs gastroenteritis, but patient was discharged home w/ Bentyl, Zofran, and pain medications. Patient was seen by Dr. Ferreira this AM and was placed on Prednisone 20 mg daily and was instructed to come to the ED if symptoms worsen. This afternoon, symptoms worsened. Patient did not take his Prednisone dosage. He admits to intermittent diarrhea. +nausea. Patient denies h/o abdominal issues/surgeries or ever following w/ GI in the past. Patient denies any fever, chills, sweats, lightheadedness, dizziness, vision changes, CP, palpitations, edema, SOB, wheezing, cough, vomiting, urinary symptoms, melena, numbness/tingling, weakness, muscle/joint pain, anxiety/depression, active bleeding, or new skin discoloration/changes. Past Medical/Surgical History Medical Problems: 1. HTN Surgical Problems: (1) History of shoulder surgery (2) History of vasectomy Family History Bladder cancer Breast cancer HTN Kidney stones Social History Smoking Status: Never Smoker Drug Use: none Marital Status: Occupational Status: employed Allergies Coded Allergies: No Known Allergies (Unverified , 05/01/17) Home Medications Scheduled Amlodipine (Norvasc), 5 MG PO DAILY Dicyclomine Hcl (Bentyl), 10 MG PO Q8 Lisinopril (Prinivil), 20 MG PO DAILY Prednisone (Prednisone), 20 MG PO DAILY Scheduled PRN Hydrocodone/Acetaminophen 5MG/325MG ([place] 5MG/325MG), 1-2 TABLETS PO Q4H PRN for Pain Ondasetron Odt (Zofran Odt), 4 MG SL Q4 PRN for Nausea or Vomiting Physical Exam Vital Signs Date Time Temp Pulse Resp B/P (MAP) Pulse Ox O2 Delivery O2 Flow Rate FiO2 05/01/17 12:05 36.6 85 18 133/69 99 Room Air Diagnostics Laboratory Results Results Past 24 Hours Test 05/01/17 12:20 05/01/17 13:25 Range/Units White Blood Count 13.49 4.8-10.8 K/uL Red Blood Count 5.51 4.7-6.1 M/uL Hemoglobin 16.4 14.0-18.0 g/dL Hematocrit 49.6 42-52 % Mean Corpuscular Volume 90.0 80-100 fL Mean Corpuscular Hemoglobin 29.8 25-34 pg Mean Corpuscular Hemoglobin Concent 33.1 32-36 g/dl Platelet Count 308 130-400 K/uL Mean Platelet Volume 9.6 7.4-10.4 fL Neutrophils (%) (Auto) 79.3 % Lymphocytes (%) (Auto) 12.1 % Monocytes (%) (Auto) 4.4 % Eosinophils (%) (Auto) 3.9 % Basophils (%) (Auto) 0.2 % Neutrophils # (Auto) 10.70 1.4-6.5 K/uL Lymphocytes # (Auto) 1.63 1.2-3.4 K/uL Monocytes # (Auto) 0.59 0.11-0.59 K/uL Eosinophils # (Auto) 0.53 0-0.5 K/uL Basophils # (Auto) 0.03 0-0.2 K/uL RDW Standard Deviation 37.5 36.4-46.3 fL RDW Coefficient of Variation 11.4 11.5-14.5 % Immature Granulocyte % (Auto) 0.1 % Immature Granulocyte # (Auto) 0.01 0.00-0.02 K/uL Sodium Level 139 136-145 mmol/L Potassium Level 4.2 3.5-5.1 mmol/L Chloride Level 101 98-107 mmol/L Carbon Dioxide Level 30 21-32 mmol/L Anion Gap 8.0 3-11 mmol/L Blood Urea Nitrogen 9 7-18 mg/dl Creatinine 1.10 0.60-1.40 mg/dl Est Creatinine Clear Calc Drug Dose 92.2 ml/min Estimated GFR () 94.8 Estimated GFR (Non- 81.8 BUN/Creatinine Ratio 8.2 10-20 Random Glucose 93 70-99 mg/dl Calcium Level 9.2 8.5-10.1 mg/dl Total Bilirubin 0.4 0.2-1 mg/dl Direct Bilirubin < 0.1 0-0.2 mg/dl Aspartate Amino Transf (AST/SGOT) 18 15-37 U/L Alanine Aminotransferase (ALT/SGPT) 35 12-78 U/L Alkaline Phosphatase 75 45-117 U/L Total Protein 7.7 6.4-8.2 gm/dl Albumin 3.9 3.4-5.0 gm/dl Lipase 117 73-393 U/L Lactic Acid Level 1.0 0.4-2.0 mmol/L Diagnostic Radiology ABDOMEN 2VIEW W/PA CHEST RTN (5 views) CLINICAL HISTORY: Generalized abdominal pain COMPARISON STUDY: 04/25/2017 FINDINGS: The erect chest reveals no free air. There is no focal pulmonary consolidation. Erect and supine views the abdomen reveal borderline dilated left mid abdominal small bowel loops measuring up to 31 mm in diameter. There are scattered air-fluid levels on the erect study. The findings could indicate an ileus, or low-grade/early small bowel obstruction. IMPRESSION: Nonspecific bowel gas pattern with borderline dilated left mid abdominal small bowel loops with associated air-fluid levels. The findings could indicate an ileus, or early/partial small bowel obstruction. No free air is visualized Electronically signed by: Oswald Iqbal M.D. 05/01/2017 1:24 PM Dictated Date/Time: 05/01/2017 1:21 PM The status of this report is Signed. Draft = Not yet reviewed or approved by Radiologist. Signed = Reviewed and approved by Radiologist. Impression Assessment and Plan Patient is a pleasant 42 y/o male, with PMHx of HTN, who presented to the ED because of persistent diffuse abdominal pain x1 week. Severe abdominal pain, ?intermittent obstruction: - Admit to med/surg - Abdominal x-ray- ? ileus vs early/partial SBO - IV NSS @ 125 ml/hr - IV Flagyl 500 mg + Cipro 400 mg x1 dose given in ED- no indication to continue antibiotics at this time- continue to monitor/pending GI input - ED spoke w/ Dr. Ferreira- continue Prednisone dose and obtain MRI Enterography -- IV Solu Medrol 20 mg x1 given in ED- resume Prednisone 20 mg daily on - NPO due to severe pain, nausea, and pending GI consultation and further evaluation - IV Zofran PRN, IV Dilaudid 1 mg q2 hrs PRN, Tylenol, and [place] for pain management, Bentyl 10 mg q8 hrs - Consult GI, appreciate recommendations - Follow CBC and PRP Mild leukocytosis, ?secondary to SBO: - Follow CBC - UA pending - Check stool cultures HTN: Continue Amlodipine 5 mg daily and Lisinopril 20 mg daily GI Prophylaxis: Maalox PRN, IV Zofran PRN, Colace and/or Milk of Mag PRN DVT prophylaxis: TYRESE and SCDs, ambulation Code Status: LEVEL I, FULL Dispo: Lives at home w/ - no discharge needs anticipated PA Physician Supervision Note: I was present with the PA during the history and exam. I discussed the case with the resident and agree with the findings and plan as documented in the note. Any exceptions or clarifications are listed here: 42 y/o M w/Hx HTN - presenting with severe central abdominal pain which is unremitting - no N/V - no previous Hx of abdominal pathologies, surgeries, crohns/colitis CT shows small bowel narrowing suspicious for partial obstruction however imaging does not appear to explain the degree of pain. He was sent to the hospital direct by his MD for further evaluation and to obtain an MRE. OE AAO x 3 S1,2 R CTAB mild distention and tender to palpation diffusely P: MRE +/- GI consult Pain control, IVF, NPO Documented By: Scott Perez Level of Care Med/Surg Resuscitation Status FULL RESUSCITATION VTE Prophylaxis VTE Risk Assessment Done? Y/N: Yes Risk Level: Low Given or contraindicated: T.E.D. Stockings, SCD's
--- NOTE | 2017-05-01 14:47 | DIAGNOSTIC IMAGING REPORT ---
ABDOMEN AND PELVIS CTA WITH IV CONTRAST CT DOSE: 1070.90 mGycm HISTORY: Generalized abdominal pain. TECHNIQUE: Multiaxial CT images of the abdomen and pelvis were performed following the use of intravenous contrast to evaluate the mesenteric vessels. Maximum intensity projection images are also obtained.. COMPARISON STUDY: Abdomen and pelvis CT 04/28/2017. FINDINGS: The abdominal aorta, celiac artery, superior mesenteric artery, renal arteries, inferior mesenteric artery, and iliac arteries are widely patent and normal in caliber. Of note, there are 2 right renal arteries. There is a left circumaortic renal vein. The lung bases are clear. No pneumoperitoneum. No pneumatosis. No fractures within the visualized osseous structures. The liver, spleen, adrenal glands, pancreas, and kidneys are unremarkable. No hydronephrosis. The gallbladder is mildly distended. Tiny fat-containing umbilical hernia. No retroperitoneal lymphadenopathy. Fluid-filled stomach. There are also multiple nondilated fluid-filled loops of small bowel within the mid to lower abdomen. No definite transition point at this time to suggest a small bowel obstruction. Normal bladder. A few colonic diverticula. The colon is almost completely decompressed. Normal appendix. IMPRESSION: 1. A few fluid-filled loops of nondistended small bowel seen within the mid to lower abdomen. There is also fluid-filled stomach. Findings can be seen in the setting of a gastroenteritis. No definite transition point at this time to suggest a small bowel obstruction. However, a low-grade partial small bowel obstruction could also have a similar appearance. 2. Mildly distended gallbladder. 3. The mesenteric vessels are widely patent. 4. Normal appendix. 5. A few colonic diverticula. Electronically signed by: Jl Chapa M.D. 05/01/2017 2:46 PM Dictated Date/Time: 05/01/2017 2:37 PM
--- NOTE | 2017-05-01 15:07 | GASTROINTESTINAL CONSULTATION ---
DATE OF CONSULTATION: 05/01/2017 DATE OF CONSULTATION: 05/01/2017. CHIEF COMPLAINT: Abdominal pain, diarrhea. HISTORY OF PRESENT ILLNESS: Mr. Varela is a 42-year-old white male who was seen for initial office visit outpatient consultation by Dr. Ferreira earlier this morning. Following his discharge from clinic, the patient's symptoms increased thus that he presented to the Emergency Room. According to the patient's as well as the patient this is the third visit to the ER for abdominal pain in the past week or so. The patient has had in addition abdominal pain which appears to be related to food intake, he has also had a pattern of loose, nonbloody stools at times with nausea, although vomiting is not a dominant symptom for the patient. He denies any fever or chills. Historically, the patient's spouse provided history that he has had lifelong problem with loose stools and earlier years he was small for his age, however when finally getting to [facility] his weight improved considerably and he had no major problems as far as abdominal pain or rectal bleeding. However, diarrhea has been a frequent aspect to the patient's prior history which is not nocturnal in nature and he attributed to the use of Mountain Dew with its high sugar and caffeine content. There is no family history of inflammatory bowel disease. He has never had any investigation for loose stools. Up until November he had continued having poor dietary habits and using Mountain Dew multiple times throughout the day but in November he decided to stop this. As a result he lost approximately 30 pounds and although his stools did become slightly more solid with this, loose stools still do occur. Since his ER visit, he was on a trial of Prilosec/omeprazole and Nexium as well as Bentyl. Today in the office, he was prescribed prednisone, but has not been started. The patient does not report any significant joint aches or rashes. He does have a right leg varicosity which has been chronic. PAST MEDICAL HISTORY: Includes hypertension for which he is on amlodipine and lisinopril. He uses Advil on an as needed basis. In addition, past medical history included diverticulitis approximately [address]. He has never had a colonoscopy or upper endoscopy by his recollection. FAMILY HISTORY: Significant for a father who from an unusual cancer involving the urachus that eventually became widely metastatic to the bladder and to elsewhere throughout the abdomen. His mother is alive, although has breast cancer. There is no Crohn's disease or inflammatory bowel disease. SOCIAL HISTORY: The patient did smoke tobacco, but quit in November 2016. He only rarely uses alcoholic beverages. 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 REVIEW OF SYSTEMS: Otherwise noncontributory based on 14-point exam. There is no odynophagia or dysphagia. The patient has not had hematemesis or coffee ground emesis. There is no predominance of vomiting, although nausea can occur when the pain begins. Bowel movements do relieve the patient's abdominal pain which is diffuse in pattern throughout the abdomen. There is no rectal bleeding. The patient has had a history of kidney stones, although the type of stone they are unsure of. There is no known liver or pancreatic disorders. At the present time, the patient just returned back from an obstruction series. PHYSICAL EXAMINATION: VITAL SIGNS: Currently show blood pressure 133/69, respirations 18, pulse 85, afebrile 36.6, room air 99%. GENERAL: The patient is accompanied by his spouse. He is awake, alert and oriented x3, although shows significant discomfort despite receiving morphine short time ago. HEAD, EYES, EARS, NOSE, AND THROAT: Sclerae are anicteric. Oral mucosa is moist. HEART: Normal S1, S2. LUNGS: Clear to auscultation without rales, rhonchi or wheezes. ABDOMEN: Show quiet bowel sounds but present. There are no abdominal bruits. I do not appreciate hepatosplenomegaly. There is no evidence of abdominal distention, ascites or shifting dullness. The abdomen is not tense and a focal area of tenderness cannot be elicited, although it appears that much of it is around the umbilicus and in the upper abdominal region. EXTREMITIES: Without clubbing, cyanosis or edema. In the right leg there is an area of varicosities and area that may represent superficial varicosities, although is not tender at the present time. LABORATORY STUDIES: On admission show white count 13.5, hemoglobin 16.4, MCV 90, platelets 308,000, eosinophil count is 3.9%, neutrophils 79.3%. Serum chemistries show sodium 139, potassium 4.2, BUN and creatinine 9 and 1.1. Lactate is pending. Calcium 9.2, total and direct are 0.4 and 0.1 respectively. AST 18, ALT 35, alkaline phosphatase 75, albumin 3.9, lipase 117. Chest and abdominal x-ray revealing nonspecific gas pattern with borderline dilated left mid abdominal small bowel loops with air fluid levels, ileus is in the differential as well as earlier partial small-bowel obstruction, free air is not identified. Chest x-ray is nonfocal. Review of recent imaging studies show a CT of 04/27/2017 that revealed fluid-filled loops of large and small bowel that may represent low grade gastroenteritis. There is no evidence for bowel obstruction. The appendix appeared normal. All the abdominal organs appeared normal. There may be a small fat containing umbilical hernia. This study was from 04/27/2017 and compared to a study of 04/25/2017. The study on 04/25/2017 revealed prominent fluid filled small bowel loops within the right abdomen which are likely within normal limits. There was no transition point identified. Abdominal organs at that time were also normal. There is no obvious lymphadenopathy. The patient had gallbladder ultrasound on 04/27/2017 which was a normal study and a chest x-ray on 04/27/2017 which was no active disease. In the past, laboratory studies had urinalysis in 12/01/2016 which was unremarkable, may represent a collection that was not clean catch. IMPRESSION AND PLAN: Mr. Varela is a 42-year-old white male with symptoms of abdominal pain that is mostly generalized, although occurs around the umbilicus and upper abdomen. Nausea companies this and there was a component of diarrhea, although part of this is chronic in nature. There is no hematemesis, melena or bright red blood per rectum. Prior workups in the Emergency Room have been unrevealing. There is a history of kidney stones, although this was not suggested on the CT scans a few days ago. Urinalysis is pending from today. There is also a lifelong component to the patient's symptoms. A leukocytosis present on today's presentation, although he is afebrile. He has not been on any recent antibiotics. The differential includes inflammatory bowel disease, focal stricture versus ileus. There is no obvious transition point on the recent CT imaging and both small and large bowel seemed to be affected and would generally favor an ileus. In addition, chronic mesenteric ischemia or vascular insufficiency may be a culprit as often the patient's pain is exacerbated a meal several minutes to half hour or so afterwards. The patient does use NSAIDs (Aleve). I made the following recommendations. I believe a dedicated small bowel study such as an MR enterography would be helpful and would consider a mesenteric Doppler study today to exclude any features to suggest vascular insufficiency. The patient currently is in significant pain despite the morphine and I believe that urgent evaluation by surgery is prudent. Regarding medical therapy, I would obtain markers for sed rate and CRP. In addition, would consider IV steroids 20 mg IV q. 12, along with antibiotics, Cipro and Flagyl. Ultimately the patient may require colonoscopy and a possible upper endoscopy, although I believe small bowel examination noninvasively is prudent. All questions were answered. The patient may require increased pain management. Surgical evaluation as recommended above. We will follow with you. Case d/w Dr Alvarez and Dr Torres who will be covering the GI service on Friday and . SHERINE
[2017-05-01] MEDS: HYDROmorphone INJ 1 MG/ML SYR IV PRN ×4 (16:58→23:29)
[2017-05-01 17:20] VITALS: BP 136/79; PULSE 82; TEMP 36.7; O2SAT 97; Ht 180.3 cm; Wt 86.0 kg
[2017-05-01] MEDS: SODIUM CHLORIDE 0.9% 1000ML 1,000 ML IV SCH (18:03)
[2017-05-01] MEDS: HYDROCODONE/ACETAMOPHEN 5/325MG TAB PO PRN ×2 (18:04→22:13)
[2017-05-01 20:31] LABS: URINE APPEARANCE CLEAR (CLEAR); URINE BILIRUBIN NEG (NEG); URINE COLOR YELLOW; URINE EPITHELIAL CELL AUTO 0-5 /lpf (0-5); URINE NITRITE NEG (NEG); URINE PH 7.5 (4.5-7.5); URINE SPECIFIC GRAVITY 1.039 (1.000-1.030); UROBILINOGEN NEG (NEG); ZZUR CULT IF INDIC CLEAN CATCH NO
[2017-05-01 20:36] LABS: MANUAL MICROSCOPIC REQUIRED? NO; REVIEW REQ? NO
[2017-05-01] MEDS: DICYCLOMINE HCL 10 MG CAP PO SCH (21:52)
[2017-05-01 23:20] VITALS: BP 113/62; PULSE 79; TEMP 36.7; O2SAT 93
[2017-05-02] MEDS: SODIUM CHLORIDE 0.9% 1000ML 1,000 ML IV SCH ×3 (01:36→18:47)
[2017-05-02] MEDS: HYDROmorphone INJ 1 MG/ML SYR IV PRN ×7 (01:36→21:27)
[2017-05-02] MEDS: HYDROCODONE/ACETAMOPHEN 5/325MG TAB PO PRN ×2 (04:17→11:52)
[2017-05-02] MEDS: DICYCLOMINE HCL 10 MG CAP PO SCH ×3 (05:42→21:23)
[2017-05-02 07:22] VITALS: BP 115/71; PULSE 66; TEMP 36.4; O2SAT 94
[2017-05-02 08:19] LABS: MEAN CELL VOLUME 90.9 fL (80-100); MEAN CORPUSCULAR HEMOGLOBIN 31.3 pg (25-34); MEAN CORPUSCULAR HGB CONC 34.4 g/dl (32-36); MEAN PLATELET VOLUME 9.5 fL (7.4-10.4); PLATELET COUNT 255 K/uL (130-400); RED BLOOD COUNT 4.51 M/uL (4.7-6.1); WHITE BLOOD COUNT 12.32 K/uL (4.8-10.8)
[2017-05-02 09:02] LABS: BUN/CREATININE RATIO 10.6 (10-20); CALCIUM 8.4 mg/dl (8.5-10.1); POTASSIUM 3.6 mmol/L (3.5-5.1)
--- NOTE | 2017-05-02 09:05 | Progress Note ---
Subjective Date of Service: May 02, 2017. Subjective pt still with some discomfort after taking clears this am, the pt underwent MRI enterography which was unrevealing, GI med to advance diet and follow considering colonoscopy in the future Problem List Medical Problems: (1) Abdominal pain Status: Acute (2) Abdominal pain Status: Acute (3) Bowel obstruction Status: Acute (4) Diverticulosis Status: Chronic (5) Enteritis Status: Acute (6) Hypertension Nos Status: Chronic (7) Personal History Of Urinary Calculi Status: Chronic Review of Systems Constitutional: No fever, No chills, No weakness, No fatigue Respiratory: No cough, No shortness of breath, No dyspnea on exertion Cardiac: No chest pain, No edema Abdomen: + pain, + nausea, No vomiting, No diarrhea, No constipation Musculoskeletal: No joint pain, No muscle pain Male : No dysuria, No urinary frequency Psychiatric: No depression symptoms, No anhedonism Objective Vital Signs Date Time Temp Pulse Resp B/P (MAP) Pulse Ox O2 Delivery O2 Flow Rate FiO2 05/02/17 07:35 Room Air 05/02/17 07:22 36.4 66 16 115/71 (86) 94 Room Air 05/01/17 23:30 Room Air 05/01/17 23:20 36.7 79 14 113/62 (79) 93 Room Air 05/01/17 17:20 36.7 82 20 136/79 (98) 97 Room Air 05/01/17 17:20 36.7 82 20 136/79 97 Room Air 05/01/17 17:20 Room Air 05/01/17 16:47 128/80 05/01/17 16:46 88 18 126/72 98 Room Air 05/01/17 14:59 84 18 126/73 98 Room Air 05/01/17 12:05 36.6 85 18 133/69 99 Room Air Physical Exam General Appearance: WD/WN, no apparent distress Neck: supple, no JVD Respiratory/Chest: chest non-tender, lungs clear, normal breath sounds Cardiovascular: regular rate, rhythm, no murmur Abdomen: soft, + abnormal bowel sounds, + guarding, + tenderness Extremities: no pedal edema, no calf tenderness Neurologic/Psychiatric: alert, oriented x 3 Laboratory Results Last 24 Hours Test 05/01/17 12:20 05/01/17 13:25 05/01/17 20:00 05/02/17 07:57 White Blood Count 13.49 K/uL 12.32 K/uL Red Blood Count 5.51 M/uL 4.51 M/uL Hemoglobin 16.4 g/dL 14.1 g/dL Hematocrit 49.6 % 41.0 % Mean Corpuscular Volume 90.0 fL 90.9 fL Mean Corpuscular Hemoglobin 29.8 pg 31.3 pg Mean Corpuscular Hemoglobin Concent 33.1 g/dl 34.4 g/dl Platelet Count 308 K/uL 255 K/uL Mean Platelet Volume 9.6 fL 9.5 fL Neutrophils (%) (Auto) 79.3 % Lymphocytes (%) (Auto) 12.1 % Monocytes (%) (Auto) 4.4 % Eosinophils (%) (Auto) 3.9 % Basophils (%) (Auto) 0.2 % Neutrophils # (Auto) 10.70 K/uL Lymphocytes # (Auto) 1.63 K/uL Monocytes # (Auto) 0.59 K/uL Eosinophils # (Auto) 0.53 K/uL Basophils # (Auto) 0.03 K/uL RDW Standard Deviation 37.5 fL 38.8 fL RDW Coefficient of Variation 11.4 % 11.7 % Immature Granulocyte % (Auto) 0.1 % Immature Granulocyte # (Auto) 0.01 K/uL Sodium Level 139 mmol/L Potassium Level 4.2 mmol/L Chloride Level 101 mmol/L Carbon Dioxide Level 30 mmol/L Anion Gap 8.0 mmol/L Blood Urea Nitrogen 9 mg/dl Creatinine 1.10 mg/dl Est Creatinine Clear Calc Drug Dose 92.2 ml/min Estimated GFR () 94.8 Estimated GFR (Non- 81.8 BUN/Creatinine Ratio 8.2 Random Glucose 93 mg/dl Calcium Level 9.2 mg/dl Total Bilirubin 0.4 mg/dl Direct Bilirubin < 0.1 mg/dl Aspartate Amino Transf (AST/SGOT) 18 U/L Alanine Aminotransferase (ALT/SGPT) 35 U/L Alkaline Phosphatase 75 U/L Total Protein 7.7 gm/dl Albumin 3.9 gm/dl Lipase 117 U/L Lactic Acid Level 1.0 mmol/L Urine Color YELLOW Urine Appearance CLEAR Urine pH 7.5 Urine Specific [place] 1.039 Urine Protein NEG Urine Glucose (UA) NEG Urine Ketones NEG Urine Occult Blood NEG Urine Nitrite NEG Urine Bilirubin NEG Urine Urobilinogen NEG Urine Leukocyte Esterase NEG Urine WBC (Auto) 0 /hpf Urine RBC (Auto) 0-4 /hpf Urine Hyaline Casts (Auto) 0 /lpf Urine Epithelial Cells (Auto) 0-5 /lpf Urine Bacteria (Auto) NEG Assessment and Plan 42 m concern for possible inflamatory bowel disease, with PMHx of HTN, who has been with multiple er visits this weeks Severe abdominal pain, ?intermittent obstruction ? ileus vs early/partial SBO - IV Flagyl 500 mg + Cipro 400 mg - ED spoke w/ Dr. Ferreira- continue Prednisone dose, completely normal MRI Enterography, will follow up after studies -- IV Solu Medrol 20 mg x1 given in ED- gi med recommends advancing diet Mild leukocytosis, stool cultures HTN: Amlodipine 5 mg daily and Lisinopril 20 mg daily DVT prophylaxis: TYRESE and SCDs, ambulation
[2017-05-02] MEDS: AMLODIPINE BESYLATE 5 MG TAB PO SCH (10:22)
[2017-05-02] MEDS: LISINOPRIL 20 MG TAB PO SCH (10:22)
[2017-05-02] MEDS ORDERED: GLUCAGON FOR INJ 1 MG VIAL SQ STA (10:50)
[2017-05-02 11:45] VITALS: O2SAT 94
[2017-05-02] MEDS ORDERED: GADAVIST IV PRN (13:15)
--- NOTE | 2017-05-02 13:25 | DIAGNOSTIC IMAGING REPORT ---
MR ENTEROGRAPHY OF THE ABDOMEN AND PELVIS CLINICAL HISTORY: Abdominal pain. Possible intermittent bowel obstruction. COMPARISON STUDY: CT angiography abdomen pelvis dated 05/01/2017 FINDINGS: The patient was scanned in the coronal and axial planes. The patient was imaged following administration of 1 mg of intramuscular glucagon. 8.5 cc of intravenous Gadavist was administered. No hepatic splenic or pancreatic adrenal or renal masses are visualized. There is no evidence of abdominal aortic aneurysm. There is no evidence of pathologic adenopathy. There is no evidence of biliary ductal dilatation. There is no evidence of major vascular stenosis. There is no evidence of pathologic bowel wall enhancement. There is no evidence of pathologic mesenteric enhancement Review of cine loops reveal no evidence of abnormal peristalsis or bowel tethering. There are no findings to indicate significant bowel obstruction. IMPRESSION: Normal study Electronically signed by: Oswald Iqbal M.D. 05/02/2017 1:23 PM Dictated Date/Time: 05/02/2017 1:10 PM
--- NOTE | 2017-05-02 14:44 | Gastroenterology Progress Note ---
Progress Note Date of Service: May 02, 2017 Subjective Pt evaluation today including: conversation w/ patient, conversation w/ family , physical exam, chart review, lab review, review of studies, review of inpatient medication list CC f/u abd pain, SB dilatation HPI Pt states abd pain better but still used some pain meds today. Is hungry. Medications Current Inpatient Medications Medications (Trade) Dose Ordered Sig/Clover Route Start Time Stop Time Status Last Admin Dose Admin Ioversol (Optiray 320) 125 ml UD PRN IV 05/01/17 14:15 05/05/17 14:14 Acetaminophen (Tylenol Tab) 650 mg Q4H PRN PO 05/01/17 14:15 05/31/17 14:14 Al Hydrox/Mg Hydrox/Simethicone (Maalox Max Susp) 15 ml Q4H PRN PO 05/01/17 14:15 05/31/17 14:14 Magnesium Hydroxide (Milk Of Magnesia Susp) 30 ml Q6H PRN PO 05/01/17 14:15 05/31/17 14:14 Polyethylene (Miralax Powder Packet) 17 gm DAILY PRN PO 05/01/17 14:15 05/31/17 14:14 Ondansetron HCl (Zofran Inj) 4 mg Q6H PRN IV 05/01/17 14:15 05/31/17 14:14 05/01/17 19:07 4 MG Amlodipine Besylate (Norvasc Tab) 5 mg DAILY PO 05/02/17 09:00 06/01/17 08:59 05/02/17 10:22 5 MG Dicyclomine HCl (Bentyl Cap) 10 mg Q8 PO 05/01/17 22:00 05/31/17 21:59 05/02/17 10:22 10 MG Acetaminophen/ Hydrocodone Bitart ([place] 5/325 Tab) 1 tab Q4H PRN PO 05/01/17 14:15 05/15/17 14:14 05/02/17 11:52 1 TAB Lisinopril (Zestril Tab) 20 mg DAILY PO 05/02/17 09:00 06/01/17 08:59 05/02/17 10:22 20 MG Prednisone (PredniSONE TAB) 20 mg DAILY PO 05/02/17 09:00 06/01/17 08:59 05/02/17 10:23 20 MG Hydromorphone HCl (Dilaudid Inj) 1 mg Q2H PRN IV 05/01/17 14:15 05/15/17 14:14 05/02/17 13:22 1 MG Sodium Chloride 1,000 ml @ 125 mls/hr Q8H IV 05/01/17 17:35 05/31/17 17:34 05/02/17 09:26 125 MLS/HR Gadobutrol (Gadavist) 8.5 mmol UD PRN IV 05/02/17 13:15 05/06/17 13:14 Objective Vital Signs Date Time Temp Pulse Resp B/P (MAP) Pulse Ox O2 Delivery O2 Flow Rate FiO2 05/02/17 11:45 94 Room Air 05/02/17 07:35 Room Air 05/02/17 07:22 36.4 66 16 115/71 (86) 94 Room Air 05/01/17 23:30 Room Air 05/01/17 23:20 36.7 79 14 113/62 (79) 93 Room Air 05/01/17 17:20 36.7 82 20 136/79 (98) 97 Room Air 05/01/17 17:20 36.7 82 20 136/79 97 Room Air 05/01/17 17:20 Room Air 05/01/17 16:47 128/80 05/01/17 16:46 88 18 126/72 98 Room Air 05/01/17 14:59 84 18 126/73 98 Room Air Physical Exam General Appearance: WD/WN, no apparent distress Respiratory/Chest: lungs clear, no respiratory distress Cardiovascular: no murmur Abdomen: normal bowel sounds, non tender, soft, no organomegaly, no pulsatile mass Laboratory Results Last 24 Hours Test 05/01/17 20:00 05/02/17 07:57 Urine Color YELLOW Urine Appearance CLEAR Urine pH 7.5 Urine Specific [place] 1.039 Urine Protein NEG Urine Glucose (UA) NEG Urine Ketones NEG Urine Occult Blood NEG Urine Nitrite NEG Urine Bilirubin NEG Urine Urobilinogen NEG Urine Leukocyte Esterase NEG Urine WBC (Auto) 0 /hpf Urine RBC (Auto) 0-4 /hpf Urine Hyaline Casts (Auto) 0 /lpf Urine Epithelial Cells (Auto) 0-5 /lpf Urine Bacteria (Auto) NEG White Blood Count 12.32 K/uL Red Blood Count 4.51 M/uL Hemoglobin 14.1 g/dL Hematocrit 41.0 % Mean Corpuscular Volume 90.9 fL Mean Corpuscular Hemoglobin 31.3 pg Mean Corpuscular Hemoglobin Concent 34.4 g/dl RDW Standard Deviation 38.8 fL RDW Coefficient of Variation 11.7 % Platelet Count 255 K/uL Mean Platelet Volume 9.5 fL Sodium Level 141 mmol/L Potassium Level 3.6 mmol/L Chloride Level 104 mmol/L Carbon Dioxide Level 30 mmol/L Anion Gap 7.0 mmol/L Blood Urea Nitrogen 11 mg/dl Creatinine 1.00 mg/dl Est Creatinine Clear Calc Drug Dose 101.4 ml/min Estimated GFR () 106.4 Estimated GFR (Non- 91.8 BUN/Creatinine Ratio 10.6 Random Glucose 79 mg/dl Calcium Level 8.4 mg/dl Assessment and Plan abd pain--secondary to process causing SB dilatation SB dilataton on CT scan--MRI no evidence of crohns---Crohns still in the differential but could be other obstructive processs also---, Continue prednisone for now. Start clear liquid diet. If pain continues to improve and tolerates clears tonight could give low residue diet tomorrow with plan for colonoscopy to [facility] to look for crohns on friday. elevated WBC--from process causing above--improved.
[2017-05-02 15:10] VITALS: BP 107/64; PULSE 69; TEMP 36.6; O2SAT 91
[2017-05-02 16:00] VITALS: O2SAT 95
[2017-05-02 23:32] VITALS: BP 95/51; PULSE 65; TEMP 36.4; O2SAT 93
[2017-05-03] MEDS: HYDROmorphone INJ 1 MG/ML SYR IV PRN (00:41)
[2017-05-03] MEDS: SODIUM CHLORIDE 0.9% 1000ML 1,000 ML IV SCH ×2 (01:35→10:24)
[2017-05-03] MEDS: DICYCLOMINE HCL 10 MG CAP PO SCH ×2 (05:58→09:04)
[2017-05-03 06:42] LABS: MEAN CELL VOLUME 92.2 fL (80-100); MEAN CORPUSCULAR HEMOGLOBIN 31.1 pg (25-34); MEAN CORPUSCULAR HGB CONC 33.8 g/dl (32-36); MEAN PLATELET VOLUME 9.5 fL (7.4-10.4); PLATELET COUNT 232 K/uL (130-400); RED BLOOD COUNT 4.34 M/uL (4.7-6.1); WHITE BLOOD COUNT 11.29 K/uL (4.8-10.8)
[2017-05-03 07:13] VITALS: BP 105/62; PULSE 73; TEMP 36.5; O2SAT 95
[2017-05-03 07:18] LABS: BUN/CREATININE RATIO 9.6 (10-20); CREATININE 0.96 mg/dl (0.60-1.40); POTASSIUM 3.8 mmol/L (3.5-5.1)
[2017-05-03] MEDS: AMLODIPINE BESYLATE 5 MG TAB PO SCH (09:04)
[2017-05-03] MEDS: LISINOPRIL 20 MG TAB PO SCH (09:04)
--- NOTE | 2017-05-03 09:31 | Gastroenterology Progress Note ---
Progress Note Date of Service: May 03, 2017 Subjective Pt evaluation today including: conversation w/ patient, physical exam, chart review, lab review, review of studies, review of inpatient medication list CC f/u abd pain, partial SBO HPI Pt states abd pain improved. No pain meds needed today. Had some abd pain with clears but thinks gas. He looked back at his fitness diet record and states there is a time correlation with using protein powder purchased at [employer] (brand unknown) and having these abd pain attacks. Review of Systems Respiratory: No shortness of breath Cardiac: No chest pain Medications Current Inpatient Medications Medications (Trade) Dose Ordered Sig/Clover Route Start Time Stop Time Status Last Admin Dose Admin Ioversol (Optiray 320) 125 ml UD PRN IV 05/01/17 14:15 05/05/17 14:14 Acetaminophen (Tylenol Tab) 650 mg Q4H PRN PO 05/01/17 14:15 05/31/17 14:14 Al Hydrox/Mg Hydrox/Simethicone (Maalox Max Susp) 15 ml Q4H PRN PO 05/01/17 14:15 05/31/17 14:14 Magnesium Hydroxide (Milk Of Magnesia Susp) 30 ml Q6H PRN PO 05/01/17 14:15 05/31/17 14:14 Polyethylene (Miralax Powder Packet) 17 gm DAILY PRN PO 05/01/17 14:15 05/31/17 14:14 Ondansetron HCl (Zofran Inj) 4 mg Q6H PRN IV 05/01/17 14:15 05/31/17 14:14 05/01/17 19:07 4 MG Amlodipine Besylate (Norvasc Tab) 5 mg DAILY PO 05/02/17 09:00 06/01/17 08:59 05/03/17 09:04 5 MG Dicyclomine HCl (Bentyl Cap) 10 mg Q8 PO 05/01/17 22:00 05/31/17 21:59 05/03/17 09:04 10 MG Acetaminophen/ Hydrocodone Bitart ([place] 5/325 Tab) 1 tab Q4H PRN PO 05/01/17 14:15 05/15/17 14:14 05/02/17 11:52 1 TAB Lisinopril (Zestril Tab) 20 mg DAILY PO 05/02/17 09:00 06/01/17 08:59 05/03/17 09:04 20 MG Prednisone (PredniSONE TAB) 20 mg DAILY PO 05/02/17 09:00 06/01/17 08:59 05/03/17 09:04 20 MG Hydromorphone HCl (Dilaudid Inj) 1 mg Q2H PRN IV 05/01/17 14:15 05/15/17 14:14 05/03/17 00:41 1 MG Sodium Chloride 1,000 ml @ 125 mls/hr Q8H IV 05/01/17 17:35 05/31/17 17:34 05/03/17 01:35 125 MLS/HR Gadobutrol (Gadavist) 8.5 mmol UD PRN IV 05/02/17 13:15 05/06/17 13:14 Objective Vital Signs Date Time Temp Pulse Resp B/P (MAP) Pulse Ox O2 Delivery O2 Flow Rate FiO2 05/03/17 07:15 Room Air 05/03/17 07:13 36.5 73 16 105/62 (76) 95 Room Air 05/03/17 00:00 Room Air 05/02/17 23:32 36.4 65 14 95/51 (66) 93 Room Air 05/02/17 16:00 95 Room Air 05/02/17 15:10 36.6 69 18 107/64 (78) 91 Room Air 05/02/17 11:45 94 Room Air Laboratory Results Last 24 Hours Test 05/03/17 06:27 White Blood Count 11.29 K/uL Red Blood Count 4.34 M/uL Hemoglobin 13.5 g/dL Hematocrit 40.0 % Mean Corpuscular Volume 92.2 fL Mean Corpuscular Hemoglobin 31.1 pg Mean Corpuscular Hemoglobin Concent 33.8 g/dl RDW Standard Deviation 40.5 fL RDW Coefficient of Variation 11.9 % Platelet Count 232 K/uL Mean Platelet Volume 9.5 fL Sodium Level 143 mmol/L Potassium Level 3.8 mmol/L Chloride Level 107 mmol/L Carbon Dioxide Level 30 mmol/L Anion Gap 6.0 mmol/L Blood Urea Nitrogen 9 mg/dl Creatinine 0.96 mg/dl Est Creatinine Clear Calc Drug Dose 105.6 ml/min Estimated GFR () 111.8 Estimated GFR (Non- 96.4 BUN/Creatinine Ratio 9.6 Random Glucose 83 mg/dl Calcium Level 8.0 mg/dl Assessment and Plan abd pain--secondary to process causing SB dilatation--improved SB dilataton on CT scan--MRI no evidence of crohns---Crohns still in the differential but could be other obstructive processs also---, Continue prednisone for now.Low fiber diet today then clears in am for prep Friday for colo to [facility] friday elevated WBC--from process causing above--improved. Told patient to have someone bring in protein can to see if any of supplements added to protein may be causing the abdominal issues.
[2017-05-03] MEDS ORDERED: PRED10TA PO (12:11)
--- NOTE | 2017-05-03 12:13 | Discharge Instructions ---
Discharge Instructions Date of Service May 03, 2017. Admission Reason for Admission: Intermittent Small Bowel Obstruction Discharge Discharge Diagnosis / Problem: abdominal pain Discharge Goals Goal(s): Diagnostic testing, Therapeutic intervention Activity Recommendations Activity Limitations: resume your previous activity . Current Hospital Diet Patient's current hospital diet: Clear Liquid Diet Discharge Diet Recommended Diet: Regular Diet (avoid using protein supplemental drinks) Pending Studies Studies pending at discharge: no Medical Emergencies . Who to Call and When: Medical Emergencies: If at any time you feel your situation is an emergency, please call 911 immediately. . Non-Emergent Contact Non-Emergency issues call your: Primary Care Provider, Aircraft [employer] Call Non-Emergent contact if: temperature is above 101, your pain is unusual for you . . "Provider Documentation" section prepared by Rambo Fischer. . VTE Core Measure Inpt VTE Proph given/why not?: Lucia Shaver, SCD's
[2017-05-03 12:19] VITALS: BP 105/62; PULSE 73; TEMP 36.5; O2SAT 95
--- NOTE | 2017-05-03 16:05 | Discharge Summary ---
Discharge Summary Date of Service May 03, 2017. Discharge Summary Admission Date: May 01, 2017 at 14:15 Discharge Date: May 03, 2017 Discharge Disposition: Home Principal Diagnosis: abdominal pain Problems/Secondary Diagnoses: (1) Diverticulosis Status: Chronic (2) Hypertension Nos Status: Chronic (3) Personal History Of Urinary Calculi Status: Chronic Procedures: MR enterography without inflammation Medication Reconciliation Changed Medications: Prednisone (Prednisone) 10 Mg Tab 20 MG PO DAILY, #8 TAB (Medication details modified) two pills daily for four days Continued Medications: Amlodipine (Norvasc) 5 Mg Tab 5 MG PO DAILY, TAB Dicyclomine Hcl (Bentyl) 10 Mg Cap 10 MG PO Q8, #20 CAP Hydrocodone/Acetaminophen 5MG/325MG (Boyce 5MG/325MG) Tab 1-2 TABLETS PO Q4H PRN for Pain, #15 TAB For Initial Treatment Lisinopril (Prinivil) 20 Mg Tab 20 MG PO DAILY, TAB Ondasetron Odt (Zofran Odt) 4 Mg Tab 4 MG SL Q4 PRN for Nausea or Vomiting, #20 TAB Discharge Exam Review of Systems: Constitutional: No fever, No chills Respiratory: No cough, No sputum Cardiovascular: No chest pain, No orthopnea Abdomen: No pain, No nausea Physical Exam: General Appearance: WD/WN, no apparent distress Abdomen / GI: normal bowel sounds, non tender, soft Hospital Course 42 m concern for possible inflammatory bowel disease, with PMHx of HTN, who has been with multiple er visits this weeks Severe abdominal pain, ?intermittent obstruction ? ileus vs early/partial SBO - completely normal MRI Enterography, tolerated advancing diet, pt feels strongly this is related to a nutritional supplement that he was drinking as he had taken it on multiple occasions just preceding abdominal pain, he understands that a colonoscopy is part of his workup but want to have a clinical trial of avoiding this supplement and see if pain recurrs, if so will submit to colonoscopy since started on steroids, will complete 5 day course no taper HTN: Amlodipine 5 mg daily and Lisinopril 20 mg daily Total Time Spent: Greater than 30 minutes This includes examination of the patient, discharge planning, medication reconciliation, and communication with other providers. Discharge Instructions Please refer to the electronic Patient Visit Report (Discharge Instructions) for additional information. Additional Copies To Matthew Ferreira M.D.
== END 2017-05-03 13:06 | disposition home or self-care (01) | DRG 390 ==
LOC: C.EDB 12:06 → C.MSN 14:15 → ENRESERV 16:13
PROVIDERS: ADMIT Internal Medicine; ATTEND Internal Medicine
DX: K56.60 Unspecified intestinal obstruction (principal); R10.84 Generalized abdominal pain; K56.7 Ileus, unspecified; D72.829 Elevated white blood cell count, unspecified; I10 Essential (primary) hypertension; K57.90 Diverticulosis of intestine, part unspecified, without perforation or abscess without bleeding; R19.7 Diarrhea, unspecified; Z87.442 Personal history of urinary calculi; Z79.899 Other long term (current) drug therapy; Z79.891 Long term (current) use of opiate analgesic; Z79.52 Long term (current) use of systemic steroids

== ENCOUNTER → 2017-05-22 | Outpatient (CLI) | payer BC ==
[~2017-05-22] MED LIST changes: -DICY10CA55 PO; -ONDA4TAB46 PO; +PRED10TA PO; +SINCALIDE IV ONE; +SODIUM CHLORIDE 0.9% IV ONE
--- NOTE | 2017-05-22 10:26 | DIAGNOSTIC IMAGING REPORT ---
NUCLEAR HEPATOBILIARY SCAN WITH EJECTION FRACTION IMAGING CLINICAL HISTORY: 41-year-old male with history of abdominal pain. TECHNIQUE: Dynamic imaging of the gallbladder was initiated 65 minutes after administration of 5 mCi of technetium 99m Choletec. Imaging was obtained every 5 minutes over a span of 40 minutes. 1.69 mcg of sincalide was injected 5 minutes prior to the start of imaging. The gallbladder ejection fraction was calculated. COMPARISON: Correlation made to MR enterography from 05/02/2017.. FINDINGS: The hepatobiliary scan shows normal filling of the gallbladder at the start of imaging. Expected activity within the bowel also noted. Gallbladder ejection fraction measured at 100% (normal greater than 50%). IMPRESSION: 1. Normal gallbladder ejection fraction. No evidence of chronic cholecystitis. Electronically signed by: Yaya Reardon 05/22/2017 10:25 AM Dictated Date/Time: 05/22/2017 10:10 AM
== END | disposition home or self-care (01) ==
LOC: C.NUCL 07:25
PROVIDERS: ATTEND Family Medicine
DX: R10.84 Generalized abdominal pain (principal)

== ENCOUNTER 2018-01-27 17:29 | Emergency (ER) | payer BC ==
[~2018-01-27] VITALS: Ht 182.9 cm; Wt 87.0 kg
[~2018-01-27 17:29] MED LIST changes: -AMLO-110 PO; -HYDR-5688 PO; -LISI20TA3 PO; -ONDA4TAB10 SL; -SINCALIDE IV ONE; -SODIUM CHLORIDE 0.9% IV ONE
[2018-01-27 17:46] VITALS: TEMP 36.9; Ht 182.9 cm; Wt 87.0 kg
[2018-01-27 19:30] LABS: BASO % 0.2 %; BASO ABS # 0.03 K/uL (0-0.2); EOS % 1.2 %; EOS ABS # 0.15 K/uL (0-0.5); HEMATOCRIT 45.2 % (42-52); HEMOGLOBIN 16.3 g/dL (14.0-18.0); IG# 0.04 K/uL (0.00-0.02); LYMPH % 22.7 %; LYMPH ABS # 2.78 K/uL (1.2-3.4); MEAN CORPUSCULAR HEMOGLOBIN 32.5 pg (25-34); MEAN CORPUSCULAR HGB CONC 36.1 g/dl (32-36); MEAN PLATELET VOLUME 9.6 fL (7.4-10.4); MONO % 8.1 %; NEUT % 67.5 %; NEUT ABS # 8.27 K/uL (1.4-6.5); PLATELET COUNT 288 K/uL (130-400); RED CELL DISTRIBUTION WIDTH CV 11.6 % (11.5-14.5); RED CELL DISTRIBUTION WIDTH SD 38.1 fL (36.4-46.3); WHITE BLOOD COUNT 12.27 K/uL (4.8-10.8)
[2018-01-27 19:48] LABS: INR 0.9 (0.9-1.1); PTT PATIENT 26.1 SECONDS (21.0-31.0)
--- NOTE | 2018-01-27 19:54 | DIAGNOSTIC IMAGING REPORT ---
CHEST ONE VIEW PORTABLE CLINICAL HISTORY: Evaluate Fever/Sepsis COMPARISON STUDY: Chest radiograph May 01, 2017. FINDINGS: Lung volumes are normal. No pneumothorax or pleural effusion is noted. There is no evidence for pulmonary edema. Cardiomediastinal silhouette is unremarkable. There is no consolidation to suggest pneumonia. IMPRESSION: No acute cardiopulmonary findings. Electronically signed by: Anmol Hernandez M.D. 01/27/2018 7:53 PM Dictated Date/Time: 01/27/2018 7:52 PM
[2018-01-27 20:05] LABS: ALBUMIN 4.1 gm/dl (3.4-5.0); ALT/SGPT 41 U/L (12-78); BLOOD UREA NITROGEN 8 mg/dl (7-18); CALCIUM 9.1 mg/dl (8.5-10.1); CARBON DIOXIDE 29 mmol/L (21-32); CREATININE 1.06 mg/dl (0.60-1.40); GLUCOSE 87 mg/dl (70-99); LIPASE 142 U/L (73-393); POTASSIUM 3.9 mmol/L (3.5-5.1); SODIUM 137 mmol/L (136-145)
[2018-01-27 20:16] LABS: ALKALINE PHOSPHATASE 79 U/L (45-117); AST/SGOT 24 U/L (15-37); CKMB 0.6 ng/ml (0.5-3.6); TOTAL PROTEIN 8.3 gm/dl (6.4-8.2)
[2018-01-27 20:35] VITALS: BP 135/82; PULSE 89; O2SAT 97
--- NOTE | 2018-01-27 20:35 | EMERGENCY ROOM VISIT NOTE ---
History Report prepared by [place]: Shannan Eisenberg Under the Supervision of: Dr. Palu Alvarado D.O. First contact with patient: 19:12 Chief Complaint: CHEST PAIN Stated Complaint: CHEST PAIN,HEADACHE,BACK PAIN BETWEEN SHOULDERS History of Present Illness The patient is a 42 year old male who presents to the Emergency Room with complaints of constant chest pain for 3 hours. The patient states that he was sitting at work 7 hours ago at his desk. He states that he stretched and started to experience chest pain shortly after. He reports that he thought he pulled something. He reports that he thought differently when it radiated to his back. He states that at first it was intermittent between his chest pain and back pain. He states that then it became continuous and did not go away, so he came to the ED. The patient describes the pain as a pressure. The patient complains of a headache. The patient denies any new recent exercise, shortness of breath, exertional discomfort, pain in his legs, and swelling in his legs. The patient notes a history of hypertension and being a smoker. He notes a family history of a heart attack and cancer. Source of History: patient Onset: 3 hours ago Position: chest Quality: pressure Timing: constant Associated Symptoms: + headache, + back pain, No SOB Note: The patient denies pain in his legs and swelling in his legs. Review of Systems See HPI for pertinent positives & negatives. A total of 10 systems reviewed and were otherwise negative. Past Medical & Surgical Medical Problems: (1) Diverticulitis (2) Diverticulosis (3) HTN (hypertension) (4) Hypertension Nos (5) Intermittent small bowel obstruction (6) Personal History Of Urinary Calculi Surgical Problems: (1) History of shoulder surgery (2) History of vasectomy Family History Cancer FH: heart attack Social History Smoking Status: Current Some Day Smoker Alcohol Use: occasionally Drug Use: none Marital Status: Housing Status: lives with family Occupation Status: employed Current/Historical Medications Scheduled Amlodipine (Norvasc), 5 MG PO DAILY Lisinopril (Prinivil), 20 MG PO DAILY Allergies Coded Allergies: No Known Allergies (Unverified , 05/01/17) Physical Exam Vital Signs Date Time Temp Pulse Resp B/P (MAP) Pulse Ox O2 Delivery O2 Flow Rate FiO2 01/27/18 19:28 101 01/27/18 19:14 98 Room Air 01/27/18 17:46 36.9 116 18 159/87 98 Room Air Physical Exam CONSTITUTIONAL/VITAL SIGNS: Reviewed / noted above. GENERAL: Non-toxic in appearance. INTEGUMENTARY: Warm, dry, and [place]. HEAD: Normocephalic. EYES: without scleral icterus or trauma. ENT/OROPHARYNX: clear and moist. LYMPHADENOPATHY/NECK: Is supple without lymphadenopathy or meningismus. RESPIRATORY: Lungs clear and equal. CARDIOVASCULAR: Mildly tachycardic rate and regular rhythm. GI/ABDOMEN: Soft and nontender. No organomegaly or pulsatile mass. No rebound or guarding. Normal bowel sounds. EXTREMITIES: Warm and well perfused. BACK: No CVA tenderness. NEUROLOGICAL: Intact without focal deficits. PSYCHIATRIC: normal affect. MUSCULOSKELETAL: Normally developed with good muscle tone. Medical Decision & Procedures ER Provider Diagnostic Interpretation: Radiology results as stated below per my review and radiologist interpretation: CHEST ONE VIEW PORTABLE CLINICAL HISTORY: Evaluate Fever/Sepsis COMPARISON STUDY: Chest radiograph May 01, 2017. FINDINGS: Lung volumes are normal. No pneumothorax or pleural effusion is noted. There is no evidence for pulmonary edema. Cardiomediastinal silhouette is unremarkable. There is no consolidation to suggest pneumonia. IMPRESSION: No acute cardiopulmonary findings. Electronically signed by: Anmol Hernandez M.D. 01/27/2018 7:53 PM Dictated Date/Time: 01/27/2018 7:52 PM Laboratory Results 01/27/18 19:16 Red Blood Count 5.02, Mean Corpuscular Volume 90.0, Mean Corpuscular Hemoglobin 32.5, Mean Corpuscular Hemoglobin Concent 36.1, Mean Platelet Volume 9.6, Neutrophils (%) (Auto) 67.5, Lymphocytes (%) (Auto) 22.7, Monocytes (%) (Auto) 8.1, Eosinophils (%) (Auto) 1.2, Basophils (%) (Auto) 0.2, Neutrophils # (Auto) 8.27, Lymphocytes # (Auto) 2.78, Monocytes # (Auto) 1.00, Eosinophils # (Auto) 0.15, Basophils # (Auto) 0.03 01/27/18 19:16 Test 01/27/18 19:16 White Blood Count 12.27 K/uL (4.8-10.8) Red Blood Count 5.02 M/uL (4.7-6.1) Hemoglobin 16.3 g/dL (14.0-18.0) Hematocrit 45.2 % (42-52) Mean Corpuscular Volume 90.0 fL (80-100) Mean Corpuscular Hemoglobin 32.5 pg (25-34) Mean Corpuscular Hemoglobin Concent 36.1 g/dl (32-36) Platelet Count 288 K/uL (130-400) Mean Platelet Volume 9.6 fL (7.4-10.4) Neutrophils (%) (Auto) 67.5 % Lymphocytes (%) (Auto) 22.7 % Monocytes (%) (Auto) 8.1 % Eosinophils (%) (Auto) 1.2 % Basophils (%) (Auto) 0.2 % Neutrophils # (Auto) 8.27 K/uL (1.4-6.5) Lymphocytes # (Auto) 2.78 K/uL (1.2-3.4) Monocytes # (Auto) 1.00 K/uL (0.11-0.59) Eosinophils # (Auto) 0.15 K/uL (0-0.5) Basophils # (Auto) 0.03 K/uL (0-0.2) RDW Standard Deviation 38.1 fL (36.4-46.3) RDW Coefficient of Variation 11.6 % (11.5-14.5) Immature Granulocyte % (Auto) 0.3 % Immature Granulocyte # (Auto) 0.04 K/uL (0.00-0.02) Prothrombin Time 9.6 SECONDS (9.0-12.0) Prothromb Time International Ratio 0.9 (0.9-1.1) Activated Partial Thromboplast Time 26.1 SECONDS (21.0-31.0) Partial Thromboplastin Ratio 1.0 D-Dimer < 190 ug/L FEU (0-500) Anion Gap 6.0 mmol/L (3-11) Est Creatinine Clear Calc Drug Dose 98.6 ml/min Estimated GFR () 99.1 Estimated GFR (Non- 85.5 BUN/Creatinine Ratio 7.5 (10-20) Calcium Level 9.1 mg/dl (8.5-10.1) Total Bilirubin 0.2 mg/dl (0.2-1) Direct Bilirubin < 0.1 mg/dl (0-0.2) Aspartate Amino Transf (AST/SGOT) 24 U/L (15-37) Alanine Aminotransferase (ALT/SGPT) 41 U/L (12-78) Alkaline Phosphatase 79 U/L (45-117) Total Creatine Kinase 130 U/L (39-308) Creatine Kinase MB 0.6 ng/ml (0.5-3.6) Creatine Kinase MB Ratio 0.5 (0-3.0) Troponin I < 0.015 ng/ml (0-0.045) Total Protein 8.3 gm/dl (6.4-8.2) Albumin 4.1 gm/dl (3.4-5.0) Lipase 142 U/L (73-393) Thyroid Stimulating Hormone (TSH) 2.860 uIu/ml (0.300-4.500) Laboratory results as stated above per my review. ECG Per My Interpretation Indication: chest pain Rate (beats per minute): 114 Rhythm: sinus tachycardia Findings: no ectopy, other (no ST elevations or depressions) ED Course 1914: Previous medical records were reviewed. The patient was evaluated in room C3. A complete history and physical examination was performed. 2026: On reevaluation, the patient is resting comfortably. I discussed the results and findings with the patient. He verbalized agreement of the treatment plan. The patient was discharged home. Medical Decision Differentials considered include acute myocardial infarction, acute coronary syndrome, myocarditis, pericarditis, pericardial effusions /tamponade, esophageal perforation, thoracic aortic dissection, pulmonary embolism, pneumonia, pneumothorax, pancreatitis, shingles, acute cholecystitis, and perforated abdominal viscus. This is a 42-year-old male who presents to the ED with a chief complaint of chest and back discomfort. The patient reported as being a pressure sensation that started around noon today. It was initially intermittent but has been somewhat continuous over the past 3 hours. He states that it initially started when he stretched while at work. He states that he was sitting at his desk. He denies having any exertional symptoms recently. He does report a history of hypertension for which he takes lisinopril and amlodipine. He does report being a smoker. He reports remote history of his grandfather dying in his 30s or 40s from an DE. His father 25 years ago from cancer. The patient has no other specific complaints. Denies shortness of breath, fevers or recent illness. No abdominal pain. His initial vital signs revealed some tachycardia and hypertension. This did improve without specific treatment during his ED stay. His blood pressure did remain slightly elevated. He is on medication for this. His EKG did not show any ischemic changes or arrhythmias. His white blood cell count was slightly elevated at 12.2. D-dimer was negative, complete metabolic panel was normal, troponin was negative, TSH was normal and chest x- ray did not show acute disease. The patient was told the results of the test. He is felt to be stable for discharge and outpatient follow-up. Medication Reconcilliation Current Medication List: was personally reviewed by me Blood Pressure Screening Patient's blood pressure: Elevated blood pressure Blood pressure disposition: Elevated BP felt to be situational Impression Primary Impression: Substernal precordial chest pain Scribe Attestation The scribe's documentation has been prepared under my direction and personally reviewed by me in its entirety. I confirm that the note above accurately reflects all work, treatment, procedures, and medical decision making performed by me. Departure Information Dispostion Home / Self-Care Referrals Adryan Martinez DO (PCP) Forms Call Back Authorization, HOME CARE DOCUMENTATION FORM, IMPORTANT VISIT INFORMATION Patient Instructions ED Chest Pain Atypical Unkn Cause, My [facility] Additional Instructions Follow-up with your doctor for further care and evaluation in 1-7 days. Return to the emergency department for worsening or new symptoms or any concerns. You have been examined and treated today on an emergency basis only. This is not a substitute for, or an effort to provide, complete comprehensive medical care. It is impossible to recognize and treat all injuries or illnesses in a single emergency department visit. It is therefore important that you follow up closely with your doctor. Call as soon as possible for an appointment.
[2018-01-27] MEDS ORDERED: LISI20TA3 PO (22:44)
[2018-01-27] MEDS ORDERED: AMLO-110 PO (22:44)
== END 2018-01-27 21:04 | disposition home or self-care (01) ==
LOC: C.EDB 17:30 → C.EDC 21:04
DX: R07.2 Precordial pain (principal); R00.0 Tachycardia, unspecified; D72.829 Elevated white blood cell count, unspecified; M54.9 Dorsalgia, unspecified; R51 Headache; I10 Essential (primary) hypertension; F17.200 Nicotine dependence, unspecified, uncomplicated; Z82.49 Family history of ischemic heart disease and other diseases of the circulatory system